=== PATIENT | male | born 1955 | race Two or more races ===

== ENCOUNTER 2025-09-10 01:00 | Inpatient (IN) | payer MEDICARE, OTHER ==
[~2025-09-10] VITALS: Ht 175.3 cm; Wt 67.1 kg
--- NOTE | 2025-09-10 01:25 | ED.PDOC ---
History of Present Illness HPI Comments 69-year-old male who came to ER via EMS for generalized weakness. Per EMS, patient being [facility] where patient was being seen there earlier, after he was seen laying on the bathroom floor of his house for over 3 days. Patient apparently was yelling for help until his neighbor came to his house. Diagnostic tests shows elevated BUN and creatinine results. Patient being transferred for JULIETTE and failure to thrive. Chief Complaint: General Weakness Time Seen by MD: : Reviewed Notes: Nurses Notes Allergies: Coded Allergies: NO KNOWN ALLERGIES (Unverified , 09/10/25) Information Source: Patient, Emergency Med Personnel Mode of Arrival: EMS Severity: Moderate Timing: Days Duration: Since onset Past Medical History PAST MEDICAL HISTORY: Cancer Surgical History: Denies all surgeries Family History Family History: Reviewed,noncontributory to illness Social History Smoker: Non-Smoker Alcohol: Denies ETOH Use Drugs: Denies Drug Use Lives In: Home Constitutional: reports: fatigue, weakness; denies: chills, diaphoresis, fever, malaise, sweats, others EENTM: denies: blurred vision, double vision, ear bleeding, ear discharge, ear drainage, ear pain, ear ringing, eye pain, eye redness, hearing loss, mouth pain, mouth swelling, nasal discharge, nose bleeding, nose congestion, nose pain, photophobia, tearing, throat pain, throat swelling, voice changes, others Respiratory: denies: cough, hemoptysis, orthopnea, SOB at rest, shortness of breath, SOB with excertion, stridor, wheezing, others Cardiovascular: denies: chest pain, dizzy spells, diaphoresis, Dyspnea on exertion, edema, irregular heart beat, left arm pain, lightheadedness, palpitations, PND, syncope, others Gastrointestinal: denies: abdomen distended, abdominal pain, blood streaked bowels, constipated, diarrhea, dysphagia, difficulty swallowing, hematemesis, melena, nausea, poor appetite, poor fluid intake, rectal bleeding, rectal pain, vomiting, others Genitourinary: denies: burning, dysuria, flank pain, frequency, hematuria, incontinence, penile discharge, penile sore, pain, testicle pain, testicle swelling, urgency, others Neurological: denies: dizziness, fainting, headache, left sided numbness, left sided weakness, numbness, paresthesia, pre-existing deficit, right sided numbness, right sided weakness, seizure, speech problems, tingling, tremors, weakness, others Musculoskeletal: denies: back pain, gout, joint pain, joint swelling, muscle pain, muscle stiffness, neck pain, others Integumetry: denies: bruises, change in color, change in hair/nails, dryness, laceration, lesions, lumps, rash, wounds, others Allergic/Immunocompromised: denies: Difficulty Healing, Frequent Infections, Hives, Itching, others Hematologic/Lymphatic: denies: anemia, blood clots, easy bleeding, easy bruising, swollen glands, others Endocrine: denies: excessive hunger, excessive sweating, excessive thirst, excessive urination, flushing, intolerance to cold, intolerance to heat, unexplained weight gain, unexplained weight loss, others Psychiatric: denies: anxiety, bipolar disorder, depression, hopeless, panic disorder, schizophrenia, sleepless, suicidal, others Physical Exam General Appearance: No Apparent Distress, Normal HEENT: Normal ENT Inspection, Pharynx Normal, TMs Normal Neck: Full Range of Motion, Non-Tender, Normal, Normal Inspection Respiratory: Chest Non-Tender, Lungs Clear, No Accessory Muscle Use, No Respiratory Distress, Normal Breath Sounds Cardiovascular: No Edema, No JVD, No Murmur, No Gallop, Normal Peripheral Pulse s, Regular Rate/Rhythm Breast Exam: Deferred Gastrointestinal: No Organomegaly, Non Tender, No Pulsatile Mass, Normal Bowel Sounds, Soft Genitalia: Deferred Pelvic: Deferred Rectal: Deferred Extremities: No calf tenderness, Normal capillary refill, Normal inspection, Normal range of motion, Non-tender, No pedal edema Musculoskeletal : Apperance: Normal Neurologic: Alert, weigher operator II-XII nml as Tested, No Motor Deficits, Normal Affect, Normal Mood, No Sensory Deficits Cerebellar Function: Normal Reflexes: Normal Skin: Dry, Normal Color, Warm Lymphatic: No Adenopathy Was a procedure done? Was a procedure done?: No Differential Dx Considerations may include: Anemia, electrolyte imbalance, dehydration, kidney failure, failure to thrive X-Ray, Labs, Meds, VS Vital Signs Date Time Temp Pulse Resp B/P (MAP) Pulse Ox O2 Delivery O2 Flow Rate FiO2 09/10/25 01:00 98.3 81 16 107/67 96 98.3 Lab Test 10/17/25 01:26 Range/Units White Blood Count 5.3 4.4-10.8 10^3/uL Red Blood Count 3.94 L 4.5-5.90 10^6/uL Hemoglobin 11.1 L 13.5-17.5 g/dL Hematocrit 33.5 L 41.0-53.0 % Mean Corpuscular Volume 85.0 80.0-100.0 fL Mean Corpuscular Hemoglobin 28.1 28.0-32.0 pg Mean Corpuscular Hemoglobin Concent 33.0 32.0-36.0 g/dL Red Cell Distribution Width 19.8 H 11.8-14.3 % Platelet Count 153 140-450 10^3/uL Mean Platelet Volume 8.5 6.9-10.8 fL Neutrophils (%) (Auto) 62.8 37.0-80.0 % Lymphocytes (%) (Auto) 34.1 10.0-50.0 % Monocytes (%) (Auto) 2.9 0.0-12.0 % Eosinophils (%) (Auto) 0.1 0.0-7.0 % Basophils (%) (Auto) 0.1 0.0-2.0 % Neutrophils # (Auto) 3.3 1.6-8.6 10 ^3/uL Lymphocytes # (Auto) 1.8 0.4-5.4 10 ^3/uL Monocytes # (Auto) 0.2 0-1.3 10 ^3/uL Eosinophils # (Auto) 0 0-0.8 10 ^3/uL Basophils # (Auto) 0 0-0.2 10 ^3/uL Nucleated Red Blood Cells 0.1 % Prothrombin Time 13.0 H 9.3-11.8 sec Prothrombin Time INR 1.25 H 0.9-1.15 Activated Partial Thromboplast Time 33.6 24.5-34.5 SEC Sodium Level 136 136-145 mmol/L Potassium Level 4.6 3.5-5.1 mmol/L Chloride Level 102 98-107 mmol/L Carbon Dioxide Level 22 20-31 mmol/L Anion Gap 12 5-15 Blood Urea Nitrogen 121 *H 9-23 mg/dL Creatinine 2.87 H 0.700-1.30 mg/dL Glomerular Filtration Rate Calc 23 >90 mL/min BUN/Creatinine Ratio 42.2 H 10.0-20.0 Serum Glucose 95 74-106 mg/dL Calcium Level 10.7 H 8.7-10.4 mg/dL Total Bilirubin 0.6 0.2-1.0 mg/dL Aspartate Amino Transferase (AST) 52 H 13-40 U/L Alanine Aminotransferase (ALT) 12 7-40 U/L Alkaline Phosphatase 88 46-116 U/L Total Protein 8.4 H 5.7-8.2 g/dL Albumin 3.4 3.2-4.8 g/dL Current Medications Medications (Trade) Dose Ordered Sig/Steven Route Start Time Stop Time Status Last Admin Sodium Chloride 1,000 ml @ 1,000 mls/hr Q1H ONCE IVB 09/10/25 01:15 09/10/25 02:14 DC 09/10/25 02:24 Time of 1ST Reevaluation: 01:18 Reevaluation 1ST: Unchanged Patient Education/Counseling: Diagnosis, Treatment Family Education/Counseling: No Family Present SEPSIS Sepsis Screen Physician Orders Urinalysis (09/10/25 01:12) Electrocardigram (09/10/25 01:12) Chest Xray 1 View (09/10/25 01:12) Vital Signs Date Time Temp Pulse Resp B/P (MAP) Pulse Ox O2 Delivery O2 Flow Rate FiO2 09/10/25 01:00 98.3 81 16 107/67 96 98.3 Laboratory Tests Test 09/10/25 01:26 White Blood Count 5.3 10^3/uL (4.4-10.8) Medications Medications Dose Ordered Sig/Steven Route Start Time Stop Time Status Last Admin Dose Admin Sodium Chloride 1,000 ml @ 1,000 mls/hr Q1H ONCE IVB 09/10/25 01:15 09/10/25 02:14 DC 09/10/25 02:24 Departure 1 Departure Time of Disposition: 02:30 Impression: Primary Impression: Acute renal failure Additional Impression: Dehydration Disposition: 09 ADMITTED INPATIENT Admit to: Med Surg Condition: Guarded Discharged With: Self Comments 69-year-old male with generalized weakness. His BUN and creatinine are high at 121 and 2.87. This is a dehydrated type of picture. Patient given IV fluids. Patient will need admission for supportive care and nephrology consultation. Critical Care Note Critical Care Time?: Yes (35 min-critical care time only) Critical care comment: Total critical care time: Approximately 36 minutes Due to a high probability of clinically significant, life threatening deterioration, the patient required my highest level of preparedness to intervene emergently and I personally spent this critical care time directly and personally managing the patient. This critical care time included obtaining a history; examining the patient; pulse oximetry; ordering and review of studies; arranging urgent treatment with development of a management plan; evaluation of patient's response to treatment; frequent reassessment; and, discussions with other providers. This critical care time was performed to assess and manage the high probability of imminent, life-threatening deterioration that could result in multi-organ failure. It was exclusive of separately billable procedures and treating other patients. Stability Stability form required: No Heart Score Heart Score: Heart Score Response (Comments) Value History N/A 0 EKG N/A 0 Age N/A 0 Risk Factors N/A 0 Troponin N/A 0 Total 0 I personally scribed for WILBER TURNER MD ([email or web address]) on 09/10/25 at 01:25. Electronically submitted by Feliciano Meza ([facility] I personally scribed for WILBER TURNER MD ([email or web address]) on 09/10/25 at 02:04. Electronically submitted by Feliciano Meza ([email or web address]). WILBER TURNER MD Sep 10, 2025 01:25
[2025-09-10 01:46] LABS: Hematocrit 33.5 % (41.0-53.0); Hemoglobin 11.1 g/dL (13.5-17.5); Mean Corpuscular Hemoglobin 28.1 pg (28.0-32.0); Mean Corpuscular Volume 85.0 fL (80.0-100.0); Nucleated Red Blood Cells % 0.1 %
--- NOTE | 2025-09-10 01:53 | DVH ---
CHEST RADIOGRAPH Indication: SOB Technique: Single frontal view of the chest was obtained COMPARISON: CHEST 1V PORT on DOS: 09/09/25 FINDINGS: Lungs and pleural spaces are clear. Cardiac silhouette and farhan are within normal limits. Bones and s oft tissues demonstrate no significant abnormality. IMPRESSION: No acute disease.
[2025-09-10 01:57] LABS: INR 1.25 (0.9-1.15); Partial Thromboplastin Time 33.6 SEC (24.5-34.5); Prothrombin Time 13.0 sec (9.3-11.8)
[2025-09-10 01:59] LABS: Alanine Aminotransferase 12 U/L (7-40); Albumin 3.4 g/dL (3.2-4.8); Alkaline Phosphatase 88 U/L (46-116); Anion Gap 12 (5-15); BUN/Creatinine Ratio 42.2 (10.0-20.0); Bilirubin, Total 0.6 mg/dL (0.2-1.0); Carbon Dioxide 22 mmol/L (20-31); Chloride 102 mmol/L (98-107); Glucose 95 mg/dL (74-106); Potassium 4.6 mmol/L (3.5-5.1); Sodium 136 mmol/L (136-145)
[2025-09-10] MEDS: SODIUM CHLORIDE 0.9% 1,000 ML IVB ONE (02:24)
[2025-09-10 02:28] LABS: Blood Urea Nitrogen 121 mg/dL (9-23); Calcium 10.7 mg/dL (8.7-10.4); Total Protein 8.4 g/dL (5.7-8.2)
[2025-09-10 04:04] VITALS: PULSE 86; RESP 16; O2SAT 98
[2025-09-10 08:35] VITALS: PULSE 109; RESP 16; O2SAT 97
[2025-09-10] MEDS ORDERED: ACETAMINOPHEN 325 MG TAB PO PRN (10:30)
[2025-09-10] MEDS ORDERED: ONDANSETRON HCL 4 MG/2 ML VIAL IV PRN (10:30)
[2025-09-10] MEDS ORDERED: DOCUSATE SOD 100 MG CAP PO PRN (10:30)
[2025-09-10] MEDS ORDERED: HYDROcodone-ACET 5/325MG TAB PO PRN (10:30)
--- NOTE | 2025-09-10 11:07 | DVHHP2 ---
History of Present Illness Reason for Visit: Generalized weakness History of Present Illness Forrest Mahmood is a 69-year-old male with past medical history of skin cancer, who was brought to the hospital by EMS after falling at home and being unable to get up. Patient lives in [facility], and was transferred from their hospital to here for further care. Patient is a poor historian. He states he lives alone and that he fell in his bathroom and was unable to get up. He is unsure how long he was on the floor. He states his phone was so he couldn't call for help. He had to wait until one of his neighbors heard him yelling and then came into his house to help him. States he does not have any significant medical history, but that he also does not go to the doctor. Patient had a CT of his head completed at [facility] that had no acute findings. He also had a CT of his abdomen without contrast that showed multiple masses. Recommends follow up imaging with contrast, will wait for kidney function to improve. Heme/Onc: Cancer (skin) Past Surgical History: Other (skin cancer removal) Smoke: No ALCOHOL: none Drugs: None Lives: Alone Domestic Violence: Neg Review of Systems Constitutional: Yes: Weakness, Malaise; No: Fever, Chills, Sweats, Other Eyes: No: Pain, Vision change, Conjunctivae inflammation, Eyelid inflammation, Other, Redness ENT: No: Ear pain, Ear discharge, Nose pain, Nose discharge, Nose congestion, Mouth pain, Mouth swelling, Throat pain, Throat swelling, Other Respiratory: No: Cough, Dry, Shortness of breath, SOB with excertion, Wheezing, Hemoptysis, Pleuritic Pain, Sputum, Wheezing, Other Cardiovascular: No: Chest Pain, Palpitations, Orthopnea, Paroxysmal Noc. Dyspnea, Edema, Lt Headedness, Other Gastrointestinal: No: Nausea, Vomiting, Abdominal Pain, Diarrhea, Constipation, Melena, Hematochezia, Other Genitourinary: No Dysuria, No Frequency, No Incontinence, No Hematuria, No Retention, No Other Musculoskeletal: No: other, neck pain, shoulder pain, arm pain, back pain, hand pain, leg pain, foot pain Skin: No: Rash, Lesions, Jaundice, Bruising, Other Neurological: Confusion; No: Weakness, Numbness, Incoordination, Change in speech, Seizures, Other Allergies: Coded Allergies: NO KNOWN ALLERGIES (Unverified , 09/10/25) Exam Vital Signs Vital Signs Date Time Temp Pulse Resp B/P (MAP) Pulse Ox O2 Delivery O2 Flow Rate FiO2 09/10/25 08:35 109 16 97 Room Air* 0 21 21 09/10/25 07:30 97.3 121/79 (93) 97.3 General Appearance: Alert, Oriented X3, Other (Patient is A&O x 3, but unsure on recent events or how long he was on the bathroom floor) HEENT: Atraumatic, PERRLA, Other (Mucous membr dry, Large buldge/cyst to right side of head) Respiratory: Clear to auscultation, Normal air movement Cardiovascular: Normal S1, Normal S2, Other (SR-ST) Extremities: No clubbing, No cyanosis, No edema, Normal pulses Skin: No rashes, No breakdown, No significant lesion Neuro: Normal speech Psych/Mental Status: Other (forgetful) Labs/Xrays Labs Test 09/10/25 01:26 Range/Units White Blood Count 5.3 4.4-10.8 10^3/uL Red Blood Count 3.94 L 4.5-5.90 10^6/uL Hemoglobin 11.1 L 13.5-17.5 g/dL Hematocrit 33.5 L 41.0-53.0 % Mean Corpuscular Volume 85.0 80.0-100.0 fL Mean Corpuscular Hemoglobin 28.1 28.0-32.0 pg Mean Corpuscular Hemoglobin Concent 33.0 32.0-36.0 g/dL Red Cell Distribution Width 19.8 H 11.8-14.3 % Platelet Count 153 140-450 10^3/uL Mean Platelet Volume 8.5 6.9-10.8 fL Neutrophils (%) (Auto) 62.8 37.0-80.0 % Lymphocytes (%) (Auto) 34.1 10.0-50.0 % Monocytes (%) (Auto) 2.9 0.0-12.0 % Eosinophils (%) (Auto) 0.1 0.0-7.0 % Basophils (%) (Auto) 0.1 0.0-2.0 % Neutrophils # (Auto) 3.3 1.6-8.6 10 ^3/uL Lymphocytes # (Auto) 1.8 0.4-5.4 10 ^3/uL Monocytes # (Auto) 0.2 0-1.3 10 ^3/uL Eosinophils # (Auto) 0 0-0.8 10 ^3/uL Basophils # (Auto) 0 0-0.2 10 ^3/uL Nucleated Red Blood Cells 0.1 % Prothrombin Time 13.0 H 9.3-11.8 sec Prothrombin Time INR 1.25 H 0.9-1.15 Activated Partial Thromboplast Time 33.6 24.5-34.5 SEC Sodium Level 136 136-145 mmol/L Potassium Level 4.6 3.5-5.1 mmol/L Chloride Level 102 98-107 mmol/L Carbon Dioxide Level 22 20-31 mmol/L Anion Gap 12 5-15 Blood Urea Nitrogen 121 *H 9-23 mg/dL Creatinine 2.87 H 0.700-1.30 mg/dL Glomerular Filtration Rate Calc 23 >90 mL/min BUN/Creatinine Ratio 42.2 H 10.0-20.0 Serum Glucose 95 74-106 mg/dL Calcium Level 10.7 H 8.7-10.4 mg/dL Total Bilirubin 0.6 0.2-1.0 mg/dL Aspartate Amino Transferase (AST) 52 H 13-40 U/L Alanine Aminotransferase (ALT) 12 7-40 U/L Alkaline Phosphatase 88 46-116 U/L Creatine Kinase 244 H 46-171 U/L Total Protein 8.4 H 5.7-8.2 g/dL Albumin 3.4 3.2-4.8 g/dL CHEST RADIOGRAPH FINDINGS: Lungs and pleural spaces are clear. Cardiac silhouette and farhan are within normal limits. Bones and soft tissues demonstrate no significant abnormality. IMPRESSION: No acute disease. SEPSIS Sepsis Screen Date sepsis recognized/suspect: Sep 10, 2025 Time Sepsis recognized/suspect: 0845 Recent Procedure: No On Antibiotic Therapy: No Respiratory Rate >20: No Heart Rate >90: Yes Temp<36 C (96.8 F) or >38.3 C: No SBP <90 or MAP <65 mmHG: No New Acute Mental Status Change: No Is the patient on CPAP, BIPAP,: No Physician Orders Admit (09/10/25 10:23) Code Status (09/10/25 10:23) 2 Gm Sodium Diet (09/10/25 Lunch) 0.9% Ns 1000 Ml (09/10/25 10:30) Hydrocodone-Acet 5/325mg Tab ([place] 5/32 (09/10/25 10:30) Ondansetron Hcl (Zofran) (09/10/25 10:30) Docusate Sodium Capsule (Colace Capsule) (09/10/25 10:30) Enoxaparin Sodium (Lovenox) (09/11/25 10:00) Fall Risk Precautions In Place QSHIFT (09/10/25 10:23) Complete Blood Count (09/11/25 04:00) Comprehensive Metabolic Panel (09/11/25 04:00) Pt Request For Service (09/10/25 10:23) Condition: Serious (09/10/25 10:23) Acetaminophen Tablet (Tylenol Tablet) (09/10/25 10:30) NS (09/10/25 10:30) Vital Signs Date Time Temp Pulse Resp B/P (MAP) Pulse Ox O2 Delivery O2 Flow Rate FiO2 09/10/25 08:35 109 16 97 Room Air* 0 21 21 09/10/25 07:30 97.3 109 20 121/79 (93) 97 97.3 09/10/25 06:30 93 12 110/79 (89) 96 09/10/25 04:30 86 12 116/72 (87) 98 09/10/25 04:04 86 16 98 Room Air* 0 21 21 Laboratory Tests Test 09/10/25 01:26 White Blood Count 5.3 10^3/uL (4.4-10.8) Medications Medications Dose Ordered Sig/Steven Route Start Time Stop Time Status Last Admin Dose Admin Sodium Chloride 1,000 ml @ 1,000 mls/hr Q1H ONCE IVB 09/10/25 01:15 09/10/25 02:14 DC 09/10/25 02:24 1,000 MLS/HR Assessment/Plan Assessment/Plan Assessment: Rhabdomyolysis, Acute kidney injury, Failure to thrive, UTI, Plan: Admit to Med-Surg, IV hydration, IV antibiotics, Consider nephrology consult, Fall risk, Physical therapy evaluation, Consider social service consult, Plan discussed with: Patient My Orders Orders - LUCINDA GARNER Procedure Category Date Status Time Admit ADMIT 09/10/25 Verified 10:23 Code Status CODE 09/10/25 Verified 10:23 2 Gm Sodium Diet DIET 09/10/25 Verified Lunch 0.9% Ns 1000 Ml PHA 09/10/25 Verified 10:30 Hydrocodone-Acet PHA 09/10/25 Verified 5/325mg Tab ([place] 10:30 Ondansetron Hcl PHA 09/10/25 Verified (Zofran) 10:30 Docusate Sodium PHA 09/10/25 Verified Capsule (Colace 10:30 Enoxaparin Sodium PHA 09/11/25 Verified (Lovenox) 10:00 Fall Risk Precautions BRE 09/10/[address] 10:23 Complete Blood Count LAB 09/11/25 Verified 04:00 Comprehensive LAB 09/11/25 Verified Metabolic Panel 04:00 Pt Request For Service PT 09/10/25 Verified 10:23 Condition: Serious BRE 09/10/25 Verified 10:23 Acetaminophen Tablet PHA 09/10/25 Verified (Tylenol Tablet) 10:30 NS PHA 09/10/25 Verified 10:30 Date of Service: Sep 10, 2025 Billing Provider: LUCINDA GARNER Common Visit Codes: [id number] INP/OBS CARE (MOD) LUCINDA GARNER Sep 10, 2025 11:07
[2025-09-10] MEDS: SODIUM CHLORIDE 0.9% 2,000 ML IV ONE (11:22)
[2025-09-10 13:52] LABS: Urine Protein, UAD 1+ (Negative); Urine WBC Clumps PRESENT /hpf (None Seen)
[2025-09-10] MEDS: SODIUM CHLORIDE 0.9% 1,000 ML IV SCH (14:21)
[2025-09-10 18:14] VITALS: PULSE 80; RESP 18; O2SAT 95
[2025-09-10 21:00] VITALS: BP 148/97; PULSE 106; RESP 20; TEMP 98; O2SAT 97
[2025-09-11 01:00] VITALS: BP 123/90; PULSE 99; RESP 20; TEMP 98.7; O2SAT 97
[2025-09-11 05:00] VITALS: BP 125/89; PULSE 89; RESP 19; TEMP 98.1; O2SAT 97
[2025-09-11 05:17] LABS: Hematocrit 29.7 % (41.0-53.0); Hemoglobin 9.9 g/dL (13.5-17.5); Mean Corpuscular Hemoglobin 28.4 pg (28.0-32.0); Mean Corpuscular Volume 85.0 fL (80.0-100.0); Nucleated Red Blood Cells % 0.1 %
[2025-09-11 05:37] LABS: Alkaline Phosphatase 78 U/L (46-116); Anion Gap 14 (5-15); BUN/Creatinine Ratio 33.6 (10.0-20.0); Bilirubin, Total 0.5 mg/dL (0.2-1.0); Calcium 9.5 mg/dL (8.7-10.4); Glucose 77 mg/dL (74-106); Potassium 4.2 mmol/L (3.5-5.1); Sodium 141 mmol/L (136-145); Total Protein 7.5 g/dL (5.7-8.2)
[2025-09-11 05:47] LABS: Alanine Aminotransferase < 9 U/L (7-40); Albumin 3.0 g/dL (3.2-4.8); Carbon Dioxide 19 mmol/L (20-31); Chloride 108 mmol/L (98-107)
[2025-09-11 05:48] LABS: Blood Urea Nitrogen 92 mg/dL (9-23)
[2025-09-11] MEDS: HALOPERIDOL LACTATE 5 MG/ML INJ VIAL IM PRN (07:19)
[2025-09-11 09:00] VITALS: BP 112/75; PULSE 92; RESP 17; TEMP 99.3; O2SAT 98
[2025-09-11] MEDS: ENOXAPARIN SOD 30 MG/0.3 ML SYRINGE SC SCH (10:00)
[2025-09-11 17:00] VITALS: BP 127/82; PULSE 108; RESP 17; TEMP 97.8; O2SAT 95
--- NOTE | 2025-09-11 17:46 | DVHPN2 ---
Subjective looks rested now/denies any pain Changes from previous H/P or p: No Changes Eyes: No Pain, No Vision change, No Conjunctivae inflammation, No Eyelid inflammation, No Other, No Redness ENT: No Ear pain, No Ear discharge, No Nose pain, No Nose discharge, No Nose congestion, No Mouth pain, No Mouth swelling, No Throat pain, No Throat swelling, No Other Cardiovascular: No Chest Pain, No Palpitations, No Orthopnea, No Paroxysmal Noc. Dyspnea, No Edema, No Lt Headedness, No Other Respiratory: No Cough, No Dry, No Shortness of breath, No SOB with excertion, No Wheezing, No Hemoptysis, No Pleuritic Pain, No Sputum, No Other Gastrointestinal: No Nausea, No Vomiting, No Abdominal Pain, No Diarrhea, No Constipation, No Melena, No Hematochezia, No Other Genitourinary: No Dysuria, No Frequency, No Incontinence, No Hematuria, No Retention, No Other Musculoskeletal: No other, No neck pain, No shoulder pain, No arm pain, No back pain, No hand pain, No leg pain, No foot pain Skin: No Rash, No Lesions, No Jaundice, No Bruising, No Other Objective Vitals Vital Signs Date Time Temp Pulse Resp B/P (MAP) Pulse Ox O2 Delivery O2 Flow Rate FiO2 09/11/25 17:00 97.8 108 17 127/82 (97) 95 97.8 09/11/25 08:00 Room Air* 0 21 Intake/Output Intake and Output 09/11/25 07:00 Intake Total 2790 ml Output Total 700 ml Balance 2090 ml Intake Oral 565 ml IV Total 2225 ml Output Urine Total 700 ml General Appearance: Alert, Oriented X3, Cooperative, No acute distress Lungs: Clear to auscultation Cardiovascular: Regular rate, Normal S1, Normal S2 Abdomen: Normal bowel sounds, Soft, Other (hard mass left side of abdomen 10 cm) Musculoskeletal: Normal sensory function, Normal motor function Extremities: No edema Neuro: Normal gait, Normal speech, Strength at 5/5 X4 ext, Normal tone, S ensation intact, Cranial nerves 3-12 NL, Other (not confused now- but per nurse intermittent confusion) Psych/Mental Status: Mental status NL, Mood NL Medications Current Medications Medications Dose Ordered Sig/Steven Route Start Time Stop Time Status Last Admin Dose Admin Sodium Chloride 1,000 ml @ 75 mls/hr [id number] IV 09/10/25 10:30 09/10/25 14:21 75 MLS/HR Acetaminophen/ Hydrocodone Bitart 1 tab Q4HP PRN PO 09/10/25 10:30 Ondansetron HCl 4 mg Q4HP PRN IV 09/10/25 10:30 Docusate Sodium 100 mg BIDPRN PRN PO 09/10/25 10:30 Enoxaparin Sodium 30 mg DAILY SC 09/11/25 10:00 Acetaminophen 650 mg Q6HP PRN PO 09/10/25 10:30 Haloperidol Lactate 5 mg Q8HP PRN IM 09/11/25 07:00 09/11/25 07:19 5 MG Ceftriaxone Sodium 50 ml @ 100 mls/hr DAILY@09 IV 09/11/25 09:00 Laboratory Results Laboratory Tests 09/11/25 04:39 Chemistry Test 09/11/25 04:39 Albumin 3.0 g/dL (3.2-4.8) L Calcium Level 9.5 mg/dL (8.7-10.4) Total Protein 7.5 g/dL (5.7-8.2) LFT Test 09/11/25 04:39 Alanine Aminotransferase (ALT) < 9 U/L (7-40) Alkaline Phosphatase 78 U/L (46-116) Aspartate Amino Transferase (AST) 45 U/L (13-40) H Total Bilirubin 0.5 mg/dL (0.2-1.0) Urinalysis Test 09/10/25 13:22 Urine Color Light-orange (Yellow) Urine Clarity Ex.turbid (Clear) Urine pH 5.0 (5.0-9.0) Urine Specific [place] 1.018 (1.001-1.035) Urine Protein 1+ (Negative) H Urine Ketones Negative (Negative) Urine Blood 2+ /uL (Negative) H Urine Nitrite Negative (Negative) Urine Bilirubin Negative (Negative) Urine Urobilinogen Normal mg/dL (Negative) Urine Leukocyte Esterase 3+ /uL (Negative) Urine RBC 70 /hpf (0 - 3) Urine WBC Clumps Present /hpf (None Seen) Urine Microscopic WBC 196 /HPF (0-3) H Urine Squamous Epithelial Cells Few /hpf (<5) Urine Calcium Oxalate Crystals Few (None Seen) Urine Bacteria Few /hpf (None Seen) H Urine Hyaline Casts Mod /lpf (0 - 2) Urine Mucus Few (None Seen) Urine Glucose Normal mg/dL (Normal) Microbiology Microbiology Date/Time Source Procedure Growth Status 09/10/25 20:35 Nose MRSA Screen - Final Complete Assessment/Plan Assessment/Plan aloc- intermittent/evluate- normal ct head/await urine cultures/empiric ab/consult neuro abdominal mass- ? neoplasm./ get ct from [place] s/p fall with mild elevation in cpk- not clinically significant to say rhabdomyolysis ckd4- us kidneys/nephro consult/ Plan discussed with: Patient, Other Date of Service: Sep 11, 2025 Billing Provider: CHRISTOPHER PINON MD Common Visit Codes: [id number] INP/OBS CARE(MOD) CHRISTOPHER PINON MD Sep 11, 2025 17:46
--- NOTE | 2025-09-11 19:06 | DVH ---
INDICATION: acute kidney injury TECHNIQUE: Multiple real-time sonographic images of the kidneys and bladder were obtained. COMPARISON: None FINDINGS: RIGHT kidney measures 10.6 cm in length. No stones are hydronephrosis. Echogenicity is normal. Left kidney not visualized. Large mass adjacent to the spleen measuring up to 22 cm, uncertain if thi s represents the kidney. No large intraluminal masses are seen in the bladder. No significant postvoid residual. Trace fluid seen in the right upper quadrant right lower quadrant. IMPRESSION: Left kidney not visualized, instead replaced by a large mass adjacent to the spleen, possibly invadin g the kidney. No right-sided hydronephrosis.
[2025-09-11 21:00] VITALS: BP 131/79; PULSE 92; RESP 17; TEMP 97.1; O2SAT 96
[2025-09-12] VITALS (7 sets, daily range): BP systolic 111–124; BP diastolic 72–82; PULSE 91–110; RESP 16–18; TEMP 97–97.7; O2SAT 95–98
--- NOTE | 2025-09-12 15:07 | DVHINCON2 ---
Date of service: Sep 12, 2025 Referring Physician Yesy Murdock NP Reason for Consultation Acute kidney injury History of Present Illness Mr. Mahmood is a 69-year-old male with prior history of skin cancer presented for further evaluation and management of acute kidney injury and generalized wea kness. He was seen initially in the ER at [facility] and was transferred to [facility] for further care. He is seen in his room, patient's sitter is at the bedside. Patient is markedly cachectic. Per chart documentation he was helped by neighbors after he had fallen at home. Serum BUN and creatinine are elevated and have improved with IV hydration. Past Medical History Skin cancer Allergies: Coded Allergies: NO KNOWN ALLERGIES (Unverified , 09/10/25) Review of Systems Unable to be obtained due to slight confusion / diminished mentation H&P Exam Vital Signs/I&O Vital Sign Date Time Temp Pulse Resp B/P (MAP) Pulse Ox O2 Delivery O2 Flow Rate FiO2 09/12/25 13:14 110 18 111/72 (85) 95 09/12/25 09:00 97.7 97.7 09/12/25 07:30 Room Air* 0 21 Intake and Output 09/11/25 09/12/25 19:00 07:00 Intake Total 240 ml 930 ml Output Total 1000 ml Balance 240 ml -70 ml Intake Oral 240 ml 930 ml Output Urine Total 1000 ml # Bowel Movements 3 Physical Exam Gen: nad, chronically ill-appearing, cachectic heent: nc/at, mmm lungs: cta anteriorly cvs: no rub abd: soft, bowel sounds audible ext: no edema skin: no rash neuro: Slow to respond Labs/Diagnostic Data Labs/Diagnostic Data Laboratory Tests Test 09/11/25 04:39 09/10/25 13:22 09/10/25 01:26 Range/Units White Blood Count 3.7 #L 5.3 4.4-10.8 10^3/uL Red Blood Count 3.49 L 3.94 L 4.5-5.90 10^6/uL Hemoglobin 9.9 L 11.1 L 13.5-17.5 g/dL Hematocrit 29.7 #L 33.5 L 41.0-53.0 % Mean Corpuscular Volume 85.0 85.0 80.0-100.0 fL Mean Corpuscular Hemoglobin 28.4 28.1 28.0-32.0 pg Mean Corpuscular Hemoglobin Concent 33.4 33.0 32.0-36.0 g/dL Red Cell Distribution Width 19.4 H 19.8 H 11.8-14.3 % Platelet Count 110 L 153 140-450 10^3/uL Mean Platelet Volume 8.1 8.5 6.9-10.8 fL Neutrophils (%) (Auto) 64.7 62.8 37.0-80.0 % Lymphocytes (%) (Auto) 30.8 34.1 10.0-50.0 % Monocytes (%) (Auto) 4.1 2.9 0.0-12.0 % Eosinophils (%) (Auto) 0.2 0.1 0.0-7.0 % Basophils (%) (Auto) 0.2 0.1 0.0-2.0 % Neutrophils # (Auto) 2.4 3.3 1.6-8.6 10 ^3/uL Lymphocytes # (Auto) 1.1 1.8 0.4-5.4 10 ^3/uL Monocytes # (Auto) 0.2 0.2 0-1.3 10 ^3/uL Eosinophils # (Auto) 0 0 0-0.8 10 ^3/uL Basophils # (Auto) 0 0 0-0.2 10 ^3/uL Nucleated Red Blood Cells 0.1 0.1 % Sodium Level 141 # 136 136-145 mmol/L Potassium Level 4.2 4.6 3.5-5.1 mmol/L Chloride Level 108 H 102 98-107 mmol/L Carbon Dioxide Level 19 L 22 20-31 mmol/L Anion Gap 14 12 5-15 Blood Urea Nitrogen 92 #*H 121 *H 9-23 mg/dL Creatinine 2.74 H 2.87 H 0.700-1.30 mg/dL Glomerular Filtration Rate Calc 24 23 >90 mL/min BUN/Creatinine Ratio 33.6 H 42.2 H 10.0-20.0 Serum Glucose 77 95 74-106 mg/dL Calcium Level 9.5 10.7 H 8.7-10.4 mg/dL Total Bilirubin 0.5 0.6 0.2-1.0 mg/dL Aspartate Amino Transferase (AST) 45 H 52 H 13-40 U/L Alanine Aminotransferase (ALT) < 9 12 7-40 U/L Alkaline Phosphatase 78 88 46-116 U/L Creatine Kinase 101 244 H 46-171 U/L Total Protein 7.5 8.4 H 5.7-8.2 g/dL Albumin 3.0 L 3.4 3.2-4.8 g/dL Urine Color Light-orange Yellow Urine Clarity Ex.turbid Clear Urine pH 5.0 5.0-9.0 Urine Specific [place] 1.018 1.001-1.035 Urine Protein 1+ H Negative Urine Ketones Negative Negative Urine Blood 2+ H Negative /uL Urine Nitrite Negative Negative Urine Bilirubin Negative Negative Urine Urobilinogen Normal Negative mg/dL Urine Leukocyte Esterase 3+ Negative /uL Urine RBC 70 0 - 3 /hpf Urine WBC Clumps Present None Seen /hpf Urine Microscopic WBC 196 H 0-3 /HPF Urine Squamous Epithelial Cells Few <5 /hpf Urine Calcium Oxalate Crystals Few None Seen Urine Bacteria Few H None Seen /hpf Urine Hyaline Casts Mod 0 - 2 /lpf Urine Mucus Few None Seen Urine Glucose Normal Normal mg/dL Prothrombin Time 13.0 H 9.3-11.8 sec Prothrombin Time INR 1.25 H 0.9-1.15 Activated Partial Thromboplast Time 33.6 24.5-34.5 SEC Microbiology Date/Time Source Procedure Growth Status 09/10/25 20:35 Nose MRSA Screen - Final Complete Assessment IMP: 1) Hemodynamically mediated JULIETTE/VMN, prerenal state 2) CKD baseline creatinine unknown 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 Plan discussed with: Patient TYRONE HEARN MD Sep 12, 2025 15:07
--- NOTE | 2025-09-12 16:18 | DVHPN2 ---
Subjective looks rested now/denies any pain/per nursing 6 bm last night- smells like c.diff Changes from previous H/P or p: No Changes Eyes: No Pain, No Vision change, No Conjunctivae inflammation, No Eyelid inflammation, No Other, No Redness ENT: No Ear pain, No Ear discharge, No Nose pain, No Nose discharge, No Nose congestion, No Mouth pain, No Mouth swelling, No Throat pain, No Throat swelling, No Other Cardiovascular: No Chest Pain, No Palpitations, No Orthopnea, No Paroxysmal Noc. Dyspnea, No Edema, No Lt Headedness, No Other Respiratory: No Cough, No Dry, No Shortness of breath, No SOB with excertion, No Wheezing, No Hemoptysis, No Pleuritic Pain, No Sputum, No Other Gastrointestinal: No Nausea, No Vomiting, No Abdominal Pain, No Diarrhea, No Constipation, No Melena, No Hematochezia, No Other Genitourinary: No Dysuria, No Frequency, No Incontinence, No Hematuria, No Retention, No Other Musculoskeletal: No other, No neck pain, No shoulder pain, No arm pain, No back pain, No hand pain, No leg pain, No foot pain Skin: No Rash, No Lesions, No Jaundice, No Bruising, No Other Objective Vitals Vital Signs Date Time Temp Pulse Resp B/P (MAP) Pulse Ox O2 Delivery O2 Flow Rate FiO2 09/12/25 13:14 110 18 111/72 (85) 95 09/12/25 09:00 97.7 97.7 09/12/25 07:30 Room Air* 0 21 Intake/Output Intake and Output 09/12/25 07:00 Intake Total 1170 ml Output Total 1000 ml Balance 170 ml Intake Oral 1170 ml Output Urine Total 1000 ml # Bowel Movements 3 General Appearance: Alert, Oriented X3, Cooperative, No acute distress Lungs: Clear to auscultation Cardiovascular: Regular rate, Normal S1, Normal S2 Abdomen: Normal bowel sounds, Soft, Other (hard mass left side of abdomen 10 cm) Musculoskeletal: Normal sensory function, Normal motor function Extremities: No edema Neuro: Normal speech, Strength at 5/5 X4 ext, Normal tone, Sensation intact, C ranial nerves 3-12 NL, Other (not confused now- but per nurse intermittent confusion) Psych/Mental Status: Mental status NL (alert,awake.oriented -2), Mood NL Medications Current Medications Medications Dose Ordered Sig/Steven Route Start Time Stop Time Status Last Admin Dose Admin Sodium Chloride 1,000 ml @ 75 mls/hr [id number] IV 09/10/25 10:30 09/12/25 12:42 75 MLS/HR Acetaminophen/ Hydrocodone Bitart 1 tab Q4HP PRN PO 09/10/25 10:30 Ondansetron HCl 4 mg Q4HP PRN IV 09/10/25 10:30 Docusate Sodium 100 mg BIDPRN PRN PO 09/10/25 10:30 Enoxaparin Sodium 30 mg DAILY SC 09/11/25 10:00 09/12/25 10:51 30 MG Acetaminophen 650 mg Q6HP PRN PO 09/10/25 10:30 Haloperidol Lactate 5 mg Q8HP PRN IM 09/11/25 07:00 09/11/25 07:19 5 MG Ceftriaxone Sodium 50 ml @ 100 mls/hr DAILY@09 IV 09/11/25 09:00 09/12/25 10:51 100 MLS/HR Laboratory Results Laboratory Tests 09/11/25 04:39 Urinalysis Test 09/10/25 13:22 Urine Color Light-orange (Yellow) Urine Clarity Ex.turbid (Clear) Urine pH 5.0 (5.0-9.0) Urine Specific [place] 1.018 (1.001-1.035) Urine Protein 1+ (Negative) H Urine Ketones Negative (Negative) Urine Blood 2+ /uL (Negative) H Urine Nitrite Negative (Negative) Urine Bilirubin Negative (Negative) Urine Urobilinogen Normal mg/dL (Negative) Urine Leukocyte Esterase 3+ /uL (Negative) Urine RBC 70 /hpf (0 - 3) Urine WBC Clumps Present /hpf (None Seen) Urine Microscopic WBC 196 /HPF (0-3) H Urine Squamous Epithelial Cells Few /hpf (<5) Urine Calcium Oxalate Crystals Few (None Seen) Urine Bacteria Few /hpf (None Seen) H Urine Hyaline Casts Mod /lpf (0 - 2) Urine Mucus Few (None Seen) Urine Glucose Normal mg/dL (Normal) Microbiology Microbiology Date/Time Source Procedure Growth Status 09/10/25 20:35 Nose MRSA Screen - Final Complete Labs and/or images reviewed: Labs reviewed by me, Image(s) reviewed by me Assessment/Plan Assessment/Plan aloc- intermittent/evluate- normal ct head/await urine cultures/empiric ab/consult neuro abdominal mass- ? neoplasm./ get ct from [place]/us shows renal mass uro consulted s/p fall with mild elevation in cpk- not clinically significant to say rhabdomyolysis ckd4- us kidneys/nephro consult/ left elbow -old fracture sequelae clinically pt not able to remember/check xray diarrhea- evaluate/treat Plan discussed with: Patient, Other (no family members/contact numbers) My Orders Orders - CHRISTOPHER PINON MD Procedure Category Date Status Time *Dr. [facility] CONS 09/11/25 Transmitted -[place] 17:47 *Consult Dr. Chairez CONS 09/11/25 Transmitted [place] 17:47 Kidney US 09/11/25 Resulted 17:48 * Urology Consult CONS 09/12/25 Transmitted 14:25 * Hematology/Oncology CONS 09/12/25 Transmitted Consult 14:26 * Content Administrator CONS 09/12/25 Transmitted Consult 15:53 Metronidazole Tablet PHA 09/12/25 Transmitted (Flagyl Tablet) 22:00 Metronidazole Tablet PHA 09/12/25 Transmitted (Flagyl Tablet) 16:15 Date of Service: Sep 12, 2025 Billing Provider: CHRISTOPHER PINON MD Common Visit Codes: [id number] INP/OBS CARE(HIGH) CHRISTOPHER PINON MD Sep 12, 2025 16:18
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
[2025-09-12] MEDS: metroNIDAZOLE 500 MG TAB PO SCH (21:51)
[2025-09-12] MEDS ORDERED: LORazepam 2MG/ML-1ML VIAL IV PRN (22:00)
[2025-09-13] VITALS (7 sets, daily range): BP systolic 118–153; BP diastolic 68–89; PULSE 82–92; RESP 16–18; TEMP 97–98.1; O2SAT 92–99
[2025-09-13 00:32] LABS: Amphetamine Screen, Urine Neg (NEGATIVE); Barbiturate Scree,Urine Neg (NEGATIVE); Benzodiazephine Screen, Urine Neg (NEGATIVE); Cannabinoid Screen, Urine Neg (NEGATIVE); Cocaine Screen, Urine Neg (NEGATIVE); Opiate Scree,Urine Neg (NEGATIVE); Phencyclidine Screen, Urine Neg (NEGATIVE)
[2025-09-13 06:56] LABS: Hematocrit 30.0 % (41.0-53.0); Hemoglobin 10.0 g/dL (13.5-17.5); Mean Corpuscular Hemoglobin 28.7 pg (28.0-32.0); Mean Corpuscular Volume 85.7 fL (80.0-100.0); Nucleated Red Blood Cells % 0.1 %
[2025-09-13 07:10] LABS: Anion Gap 12 (5-15); Calcium 9.6 mg/dL (8.7-10.4); Potassium 3.8 mmol/L (3.5-5.1); Sodium 138 mmol/L (136-145)
[2025-09-13 07:16] LABS: Glucose 90 mg/dL (74-106)
[2025-09-13 07:17] LABS: BUN/Creatinine Ratio 31.7 (10.0-20.0)
[2025-09-13 07:18] LABS: Blood Urea Nitrogen 77 mg/dL (9-23); Carbon Dioxide 19 mmol/L (20-31); Chloride 107 mmol/L (98-107)
--- NOTE | 2025-09-13 09:03 | DVHPN2 ---
Progress Note - Dictate Date Seen: Sep 13, 2025 Medical Necessity Reason Pt with a Central, PICC or Fol: Yes The following are medically ne: Tineo Catheter Subjective Mr. Mahmood is a 69 years old gentleman with a history of cancer, the patient was transferred from the [facility]. The patient is awake, with good social skills I have seen and examined the patient, I have talked to his nurse and sitter, he is better today, awake, oriented to person, place, he remembers some ambulance experience He moves both arms and legs, [facility] PT/INR/APTT 09/09/2025:12.4/1.17/26.7 BUN/CR, 09/09/2025: 126/3.2 Lactic acid, 09/09/2025: 2.1 CPK, 09/09/25: 258 NH3, 09/09/2025: <9 TSH, 09/12/2025: 18.18 CT head, 09/09/2025: No acute intracranial abnormality. Large cystic appearance structure within the right posterior scalp, possibly a large sebaceous cyst CT abdomen/pelvis, 09/09/2025: Limited assessment and without contrast. Multiple large masses oriented times in the upper and mid abdomen. Arranging not clear without contrast. Left kidney not visualized, possible intubated by the mass Urinalysis, 09/10/2025: WBC: 196, urine leukocyte esterase: 3+ WBC/HB/PLT/MCV, 09/11/2025: 3.7/9.9/110/85 PT/INR/ABG, 09/10/2025: 13/1.25/33.6 BUN/CR, 09/10/2025: 121/2.87, 08/1025: 92/2.74, 09/13/2025: 77/2.43 HCO3 09/11/2025: 19, 09/13/2025: 19 GFR, 09/10/2025: 23, 09/18: 24 TBI/AST/ALT/AP, 09/10/2025: 0.6/52/12/88 CK, 09/10/2025: 244, 09/11/25: 103 Ultrasound, 09/11/2025: Left kidney not visualized, instead replaced by a large mass adjacent to the spleen, possibly invading the kidney. No right-sided hydronephrosis. Chest x-ray, 09/10/2025: No acute disease vital signs Vital Sign Date Time Temp Pulse Resp B/P (MAP) Pulse Ox O2 Delivery O2 Flow Rate FiO2 09/13/25 08:00 Room Air* 0 21 09/13/25 05:00 98.1 85 18 123/76 (92) 99 98.1 Total Intake and Output 09/12/25 09/12/25 09/13/25 15:00 23:00 07:00 Intake Total 2061 ml 1240 ml 3000 ml Output Total 378 ml 453 ml Balance 2061 ml 862 ml 2547 ml medications Current Medications Medications Dose Ordered Sig/Steven Route Start Time Stop Time Status Last Admin Dose Admin Sodium Chloride 1,000 ml @ 75 mls/hr [id number] IV 09/10/25 10:30 09/13/25 05:28 75 MLS/HR Acetaminophen/ Hydrocodone Bitart 1 tab Q4HP PRN PO 09/10/25 10:30 Ondansetron HCl 4 mg Q4HP PRN IV 09/10/25 10:30 Docusate Sodium 100 mg BIDPRN PRN PO 09/10/25 10:30 Enoxaparin Sodium 30 mg DAILY SC 09/11/25 10:00 09/13/25 08:53 30 MG Acetaminophen 650 mg Q6HP PRN PO 09/10/25 10:30 Haloperidol Lactate 5 mg Q8HP PRN IM 09/11/25 07:00 09/11/25 07:19 5 MG Ceftriaxone Sodium 50 ml @ 100 mls/hr DAILY@09 IV 09/11/25 09:00 09/13/25 08:53 100 MLS/HR Metronidazole 500 mg Q8HR PO 09/12/25 22:00 09/13/25 05:28 500 MG Lorazepam 1 mg ONCE PRN IV 09/12/25 22:00 objective General: the patient is well developed and nourished. No acute distress. He is cachexia MENTAL STATUS: Awake, only oriented to himself SPEECH, LANGUAGE, HIGHER CORTICAL FUNCTION: no aphasia or dysathria. CRANIAL NERVES:Pupils are equal, round and reactive. EOMs full and conjugate. No nystagmus. Facial sensation intact in all three divisions bilaterally. Mandibular strength intact. Facial muscles symmetrical and strength intact. Tongue midline. No fasciculations or atrophy. SENSATION: Sensation to touch and pinprick is normal. MOTOR: Normal tone in the upper and lower extremity. Normal muscle bulk. No fasciculations. No abnormal movements or posturing. Muscle strength of the major groups in the upper extremities is 4/5. For both legs, ? Left-sided weaker REFLEXES: Deep tendon reflexes normal and symmetrical. No pathological reflexes. CEREBELLAR/COORDINATION: Finger to nose is normal bilaterally GAIT/STATION: deferred. laboratory and microbiology Laboratory Tests 09/13/25 04:30 Test 09/13/25 04:30 Range/Units Serum Glucose 90 74-106 mg/dL Problem List Altered mental status Metabolic encephalopathy Rule out dementia Cachexia ? Secondary to abdominal mass Acute kidney failure Left leg weakness Hypothyroidism Assessment/Plan Monitoring Supportive treatment Med surge UDS Vitamin B12, folic acid, EEG CT abdomen/pelvis MRI brain scan Nephrology consultation Urology consultation Hematology consultation More recommendation per clinical course This medical document was created using an electronic medical record system with [employer] dictation system. Although this document has been carefully reviewed, there may still be some phonetic and typographical errors. These areas are purely typographical due to imperfections of the software programs, and do not reflect any compromise in the patient's medical care. Prognosis poor Dietary Evaluation Review Recommendations by RD: Increase Calorie Intake Comments: 1) Initiate Nepro bid 2) Consider adding renal standard restriction to diet 3) Encourage optimal PO intake 4) Follow-up with oncology and nephrology 5) Continue to monitor I&O, labs, and skin integrity Expected Outcomes/Goals: 1) appetite and labs to improve 2) gradual wt gain 3) f/u in 3-5 days Plan discussed with: Other Total Time (mins): 40 SHANTAL WINTER MD Sep 13, 2025 09:03
--- NOTE | 2025-09-13 09:34 | DVH ---
CLINICAL INFORMATION: Intra-abdominal mass. TECHNIQUE: Axial CT images of the abdomen and pelvis were obtained without IV contrast. Coronal and s agittal reformatted images were obtained, reviewed, and stored. Evaluation of the parenchymal organs is limited without IV contrast. Evaluation of the bowel and mesentery is limited without oral contras t. All CT scans at this medical facility are performed using dose modulation techniques as appropriat e to a performed exam including the following: Automated exposure control was utilized; adjustment of the MA and/or KV according to patient size; and use of iterative reconstruction technique. CTDIvol = 5.85 mGy DLP = 3.92 mGy-cm COMPARISON: CT ABD/PEL WO/CONTRAST on DOS: 09/09/25 FINDINGS: Lung bases: Small bilateral pleural effusions with overlying compressive atelectasis. Liver: There is mass effect in the liver by the process in the abdomen described below. Otherwise sagar ssly unremarkable noncontrast enhanced appearance of the liver. Biliary: Multiple calcified gallstones in the gallbladder. Spleen: Mild splenomegaly, with the spleen measuring up to 14.8 cm in greatest dimension. Pancreas: Pancreas is not visualized, likely obscured by the large abdominal mass or masses. Adrenal glands: Not visualized. Kidneys: Right kidney demonstrates no hydronephrosis and no renal or ureteral calculi. Left kidney is not visualized, appears to be obscured by large mass or masses in the abdomen, uncertain if the mass arises from the kidney. Poorly delineated from adjacent structures, including the stomach and small bowel loops. The mass or possibly multiple masses appears to measure up to approximately 18.8 x 9.6 x 19.3 cm, although not well evaluated without IV contrast. There is mass effect on adjacent structure s, including the spleen, bowel, aorta, and liver. There are associated calcifications. Aorta/Vascular: Dense atherosclerotic calcification. No abdominal aortic aneurysm. Aorta is deviated to the right due to The abdominal mass. Lymph nodes: Not well evaluated due to the abdominal mass obscuring visualization. Bowel/mesentery: There are some mildly distended fluid-filled small bowel loops. No focal transition point to suggest small bowel obstruction. Appendix is not visualized. There is free fluid in the abdo men and pelvis. Pelvic organs: Grossly unremarkable. Bladder: Tineo catheter within the bladder. Abdominal wall: Anasarca. There is a fluid collection in the right scrotal sac measuring up to 4 cm, possible hydrocele. Other fluid collection not excluded. Bones: No acute fracture or suspicious intraosseous lesion. IMPRESSION: 1. Suspected large mass or possibly multiple masses in the left hemiabdomen, completely obscuring the left kidney as well as portions of the stomach and bowel, suboptimally evaluated without IV contrast . Minimal minimal change compared to the previous noncontrast enhanced CT. 2. Nonspecific nondilated fluid-filled small bowel loops. Findings may be seen with ileus or enteriti s in the appropriate clinical setting. No focal transition point to suggest small bowel obstruction. 3. Free fluid in the abdomen and pelvis. 4. Anasarca. 5. Fluid collection in the right scrotal sac, may be hydrocele, other fluid collection not excluded. Correlate with clinical findings. If clinically indicated, ultrasound could be obtained to further c haracterize. 6. Small bilateral pleural effusions with overlying compressive atelectasis. 7. Cholelithiasis. 8. Additional findings as described above.
--- NOTE | 2025-09-13 12:58 | DVH ---
MRI BRAIN HEAD WO CONTRAST INDICATION: CVA, Dementia EXAM DATE: 09/13/2025 12:10 PM COMPARISON: CT HEAD W/O CONTRAST on DOS: 09/09/25 PROCEDURE: Using a 1.5 Livia scanner, multisequence multiplanar imaging of the brain was obtained. FINDINGS: The brainshows normal morphology and signal characteristics. No abnormal T2 hyperintensity, diffusion restriction, or susceptibility hypointensity is present. The ventricles are normal in size . The midline structures are intact. The major intracranial flow voids are present. The aerated space s are normal. The orbital contents and extracranial soft tissues appear normal. IMPRESSION: Unremarkable MRI findings of the brain.
--- NOTE | 2025-09-13 13:34 | DVH ---
EXAM: MRI MRI ABDOMEN NO CONTRAST HISTORY: RENAL MASS DONE W/O LABS OUT OF RANGE COMPARISON: CT CT AB PEL WO CON-NO ORAL OR IV on DOS: 09/13/25 TECHNIQUE: Multiplanar, multisequence imaging of the abdomen was performed with and without contrast. FINDINGS: [LOWER CHEST]: Small bilateral pleural effusions with compressive atelectasis in bilateral lung bases . [LIVER]: No suspicious liver lesion allowing for limitation [SPLEEN]: Unremarkable. [PANCREAS]: Poorly visualized [GALLBLADDER AND DUCTS]: Layering cholelithiasis. Gallbladder is decompressed. The cystic duct, righ t and left hepatic ducts, common hepatic duct, and common bile ducts are unremarkable. [ADRENAL GLANDS]: Poorly visualized [KIDNEYS]: In regards to the clinical question, overall limited evaluation without intravenous contra st however significant centrally cystic necrotic extensive mass presumably arising from the left kidn ey measuring 20 x 14.5 cm in axial dimension with peripheral rind of significant diffusion restrictio n. Mass demonstrates significant viable tissue extending into the right brittany hepatis. Complete enca sement of the presumably celiac and superior mesenteric artery origins with significant right lateral displacement of the abdominal aorta and inferior vena cava. Presumably left renal vein invasion wit h complete obliteration. Invasion of the pancreas not excluded given poor visualization. [VISUALIZED BOWEL]: Limited evaluation secondary to significant mass effect [VASCULATURE]: As detailed above, suspected complete invasion and subsequent thrombus of the left matty al vein. [LYMPHADENOPATHY]: Presumed conglomerate lymphadenopathy in the retroperitoneum primarily in the left para-aortic station [ASCITES]: Absent. [MUSCULOSKELETAL]: Bone marrow signal is normal. [OTHER]: None IMPRESSION: 1. Significantly limited evaluation without intravenous contrast. 2. Large centrally necrotic mass presumably arising from the left kidney with significant viable tiss ue extending into the right brittany hepatis. 3. 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 4. 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 5. Presumed conglomerate lymphadenopathy in the retroperitoneum primarily in the left para-aortic sta tion.
[2025-09-13 13:51] LABS: Free T4 (Free Thyroxine) 0.77 ng/dL (0.89-1.76)
--- NOTE | 2025-09-13 13:57 | DVHINCON2 ---
Date of service: Sep 13, 2025 Referring Physician hospitalist Reason for Consultation renal mass History of Present Illness History Source: Patient, RN Notes, MD Notes Exam Limitations: Clinical condition HPI 69-year-old male with past medical history of skin cancer, who was brought to the hospital by EMS after falling at home and being unable to get up. Patient lives in [facility], and was transferred from their hospital to here for further care. Patient is a poor historian. He states he lives alone and that he fell in his bathroom and was unable to get up. He is unsure how long he was on the floor. He states his phone was so he couldn't call for help. He had to wait until one of his neighbors heard him yelling and then came into his house to help him. States he does not have any significant medical history, but that he also does not go to the doctor. Patient had a CT of his head completed at [facility] that had no acute findings. He also had a CT of his abdomen without contrast that showed multiple masses. Recommends follow up imaging with contrast, will wait for kidney function to improve. Heme/Onc: Cancer (skin) Past Surgical History: Other (skin cancer removal) Smoke: No ALCOHOL: none Drugs: None Lives: Alone Domestic Violence: Neg H&P Exam Vital Signs Vital Signs Date Time Temp Pulse Resp B/P (MAP) Pulse Ox O2 Delivery O2 Flow Rate FiO2 09/13/25 09:00 90 18 118/68 (85) 98 09/13/25 08:00 Room Air* 0 21 09/13/25 05:00 98.1 98.1 General Appeara: Well developed, Well nourished, Normal Appearance Neck Exam: Other (left mass) Abdominal Exam: Other (left abdominal mass) Neuro/Mental St: Alert Appearance: Memory impairment Skin Exam: Normal inspection, Normal color, Warm/dry Labs/Xrays [address] [address] Ph: [phone] DIAGNOSTIC IMAGING Diagnostic Imaging Report : [id number] Signed PATIENT: AKIL BRITTON ACCT: [id number] UNIT: [id number] : 1955 LOC: CENTRAL ROOM / BED: 0221 / A AGE / SEX: 69 / M ADM STATUS: ADM IN SERVICE 0700 ORDERING PHYSICIAN: TYRONE HEARN MD PROCEDURE(s): ABPL - CT AB PEL WO CON-NO ORAL OR IV REASON: intra-abdominal mass ORDER NUMBER(s): [id number], ACCESSION NUMBER(s): [id number] CLINICAL INFORMATION: Intra-abdominal mass. TECHNIQUE: Axial CT images of the abdomen and pelvis were obtained without IV contrast. Coronal and sagittal reformatted images were obtained, reviewed, and stored. Evaluation of the parenchymal organs is limited without IV contrast. Evaluation of the bowel and mesentery is limited without oral contrast. All CT scans at this medical facility are performed using dose modulation techniques as appropriate to a performed exam including the following: Automated exposure control was utilized; adjustment of the MA and/or KV according to patient size; and use of iterative reconstruction technique. CTDIvol = 5.85 mGy DLP = 3.92 mGy-cm COMPARISON: CT ABD/PEL WO/CONTRAST on DOS: 09/09/25 FINDINGS: Lung bases: Small bilateral pleural effusions with overlying compressive atelectasis. Liver: There is mass effect in the liver by the process in the abdomen described below. Otherwise grossly unremarkable noncontrast enhanced appearance of the liver. Biliary: Multiple calcified gallstones in the gallbladder. Spleen: Mild splenomegaly, with the spleen measuring up to 14.8 cm in greatest dimension. Pancreas: Pancreas is not visualized, likely obscured by the large abdominal mass or masses. Adrenal glands: Not visualized. Kidneys: Right kidney demonstrates no hydronephrosis and no renal or ureteral calculi. Left kidney is not visualized, appears to be obscured by large mass or masses in the abdomen, uncertain if the mass arises from the kidney. Poorly deli neated from adjacent structures, including the stomach and small bowel loops. The mass or possibly multiple masses appears to measure up to approximately 18.8 x 9.6 x 19.3 cm, although not well evaluated without IV contrast. There is mass effect on adjacent structures, including the spleen, bowel, aorta, and liver. There are associated calcifications. Aorta/Vascular: Dense atherosclerotic calcification. No abdominal aortic aneurysm. Aorta is deviated to the right due to The abdominal mass. Lymph nodes: Not well evaluated due to the abdominal mass obscuring visualization. Bowel/mesentery: There are some mildly distended fluid-filled small bowel loops. No focal transition point to suggest small bowel obstruction. Appendix is not visualized. There is free fluid in the abdomen and pelvis. Pelvic organs: Grossly unremarkable. Bladder: Shafer catheter within the bladder. Abdominal wall: Anasarca. There is a fluid collection in the right scrotal sac measuring up to 4 cm, possible hydrocele. Other fluid collection not excluded. Bones: No acute fracture or suspicious intraosseous lesion. IMPRESSION: 1. Suspected large mass or possibly multiple masses in the left hemiabdomen, completely obscuring the left kidney as well as portions of the stomach and b owel, suboptimally evaluated without IV contrast. Minimal minimal change compared to the previous noncontrast enhanced CT. 2. Nonspecific nondilated fluid-filled small bowel loops. Findings may be seen with ileus or enteritis in the appropriate clinical setting. No focal transition point to suggest small bowel obstruction. 3. Free fluid in the abdomen and pelvis. 4. Anasarca. 5. Fluid collection in the right scrotal sac, may be hydrocele, other fluid collection not excluded. Correlate with clinical findings. If clinically indicated, ultrasound could be obtained to further characterize. 6. Small bilateral pleural effusions with overlying compressive atelectasis. 7. Cholelithiasis. 8. Additional findings as described above. ATED BY: DARREN HAGER DO DICTATED DATE/TIME: 09/13/25931 SIGNED BY: DARREN HAGER DO SIGNED DATE/TIME: 09/13/25931 CC: [place] [address] Ph: [phone] DIAGNOSTIC IMAGING Diagnostic Imaging Report : [id number] Signed PATIENT: AKIL BRITTON ACCT: [id number] UNIT: [id number] : 1955 LOC: CENTRAL ROOM / BED: [facility] / A AGE / SEX: 69 / M ADM STATUS: ADM IN SERVICE 47 ORDERING PHYSICIAN: CHRISTOPHER PINON MD PROCEDURE(s): KIDUS - KIDNEY REASON: acute kidney injury ORDER NUMBER(s): [id number], ACCESSION NUMBER(s): [id number] INDICATION: acute kidney injury TECHNIQUE: Multiple real-time sonographic images of the kidneys and bladder were obtained. COMPARISON: None FINDINGS: RIGHT kidney measures 10.6 cm in length. No stones are hydronephrosis. Echogenicity is normal. Left kidney not visualized. Large mass adjacent to the spleen measuring up to 22 cm, uncertain if this represents the kidney. No large intraluminal masses are seen in the bladder. No significant postvoid residual. Trace fluid seen in the right upper quadrant right lower quadrant. IMPRESSION: Left kidney not visualized, instead replaced by a large mass adjacent to the spleen, possibly invading the kidney. No right-sided hydronephrosis. ATED BY: BRADEN ALANIS MD DICTATED DATE/TIME: 09/11/251903 SIGNED BY: BRADEN ALANIS MD SIGNED DATE/TIME: 09/11/251903 CC: Labs Test 09/13/25 04:30 09/12/25 23:40 09/12/25 22:48 09/11/25 04:39 Range/Units White Blood Count 4.0 L 4.4-10.8 10^3/uL Red Blood Count 3.50 L 4.5-5.90 10^6/uL Hemoglobin 10.0 L 13.5-17.5 g/dL Hematocrit 30.0 L 41.0-53.0 % Mean Corpuscular Volume 85.7 80.0-100.0 fL Mean Corpuscular Hemoglobin 28.7 28.0-32.0 pg Mean Corpuscular Hemoglobin Concent 33.5 32.0-36.0 g/dL Red Cell Distribution Width 19.7 H 11.8-14.3 % Platelet Count 93 L 140-450 10^3/uL Mean Platelet Volume 7.7 6.9-10.8 fL Neutrophils (%) (Auto) 63.6 37.0-80.0 % Lymphocytes (%) (Auto) 31.8 10.0-50.0 % Monocytes (%) (Auto) 3.8 0.0-12.0 % Eosinophils (%) (Auto) 0.5 0.0-7.0 % Basophils (%) (Auto) 0.3 0.0-2.0 % Neutrophils # (Auto) 2.5 1.6-8.6 10 ^3/uL Lymphocytes # (Auto) 1.3 0.4-5.4 10 ^3/uL Monocytes # (Auto) 0.2 0-1.3 10 ^3/uL Eosinophils # (Auto) 0 0-0.8 10 ^3/uL Basophils # (Auto) 0 0-0.2 10 ^3/uL Nucleated Red Blood Cells 0.1 % Sodium Level 138 136-145 mmol/L Potassium Level 3.8 3.5-5.1 mmol/L Chloride Level 107 98-107 mmol/L Carbon Dioxide Level 19 L 20-31 mmol/L Anion Gap 12 5-15 Blood Urea Nitrogen 77 #H 9-23 mg/dL Creatinine 2.43 H 0.700-1.30 mg/dL Glomerular Filtration Rate Calc 28 >90 mL/min BUN/Creatinine Ratio 31.7 H 10.0-20.0 Serum Glucose 90 74-106 mg/dL Calcium Level 9.6 8.7-10.4 mg/dL Urine Opiates Screen Neg NEGATIVE Urine Fentanyl Screen Neg NEGATIVE Urine Barbiturates Screen Neg NEGATIVE Urine Phencyclidine Screen Neg NEGATIVE Urine Amphetamines Screen Neg NEGATIVE Urine Benzodiazepines Screen Neg NEGATIVE Urine Cocaine Screen Neg NEGATIVE Urine Cannabinoids Screen Neg NEGATIVE Thyroid Stimulating Hormone (TSH) 18.18 H 0.55-4.78 uIU/mL Total Bilirubin 0.5 0.2-1.0 mg/dL Aspartate Amino Transferase (AST) 45 H 13-40 U/L Alanine Aminotransferase (ALT) < 9 7-40 U/L Alkaline Phosphatase 78 46-116 U/L Creatine Kinase 101 46-171 U/L Total Protein 7.5 5.7-8.2 g/dL Albumin 3.0 L 3.2-4.8 g/dL Test 09/10/25 13:22 09/10/25 01:26 Range/Units Urine Color Light-orange Yellow Urine Clarity Ex.turbid Clear Urine pH 5.0 5.0-9.0 Urine Specific [place] 1.018 1.001-1.035 Urine Protein 1+ H Negative Urine Ketones Negative Negative Urine Blood 2+ H Negative /uL Urine Nitrite Negative Negative Urine Bilirubin Negative Negative Urine Urobilinogen Normal Negative mg/dL Urine Leukocyte Esterase 3+ Negative /uL Urine RBC 70 0 - 3 /hpf Urine WBC Clumps Present None Seen /hpf Urine Microscopic WBC 196 H 0-3 /HPF Urine Squamous Epithelial Cells Few <5 /hpf Urine Calcium Oxalate Crystals Few None Seen Urine Bacteria Few H None Seen /hpf Urine Hyaline Casts Mod 0 - 2 /lpf Urine Mucus Few None Seen Urine Glucose Normal Normal mg/dL Prothrombin Time 13.0 H 9.3-11.8 sec Prothrombin Time INR 1.25 H 0.9-1.15 Activated Partial Thromboplast Time 33.6 24.5-34.5 SEC Microbiology Date/Time Source Procedure Growth Status 09/10/25 20:35 Nose MRSA Screen - Final Complete Assessment/Plan Problem List: (1) Renal mass (2) Dehydration (3) Acute renal failure (4) Rhabdomyolysis Plan MRI pending mass is non resectable consider biopsy tumor markers ordered keep shafer recommend oncology consultation palliative care consult Plan discussed with: Patient, Other AXEL SLADE NP Sep 13, 2025 13:57
--- NOTE | 2025-09-13 15:01 | DVHPN2 ---
Reviewed: H&P Changes from previous H/P or p: No Changes General: Per HPI Eyes: No Pain, No Vision change, No Conjunctivae inflammation, No Eyelid inflammation, No Other, No Redness ENT: No Ear pain, No Ear discharge, No Nose pain, No Nose discharge, No Nose congestion, No Mouth pain, No Mouth swelling, No Throat pain, No Throat swelling, No Other Cardiovascular: No Chest Pain, No Palpitations, No Orthopnea, No Paroxysmal Noc. Dyspnea, No Edema, No Lt Headedness, No Other Respiratory: No Cough, No Dry, No Shortness of breath, No SOB with excertion, No Wheezing, No Hemoptysis, No Pleuritic Pain, No Sputum, No Other Gastrointestinal: No Nausea, No Vomiting, No Abdominal Pain, No Diarrhea, No Constipation, No Melena, No Hematochezia, No Other Genitourinary: No Dysuria, No Frequency, No Incontinence, No Hematuria, No Retention, No Other Musculoskeletal: No other, No neck pain, No shoulder pain, No arm pain, No back pain, No hand pain, No leg pain, No foot pain Skin: No Rash, No Lesions, No Jaundice, No Bruising, No Other Objective Vitals Vital Signs Date Time Temp Pulse Resp B/P (MAP) Pulse Ox O2 Delivery O2 Flow Rate FiO2 09/13/25 09:00 90 18 118/68 (85) 98 09/13/25 08:00 Room Air* 0 21 09/13/25 05:00 98.1 98.1 Intake/Output Intake and Output 09/13/25 07:00 Intake Total 6301 ml Output Total 831 ml Balance 5470 ml Intake Oral 3301 ml IV Total 1000 ml Tube Feeding 2000 ml Output Urine Total 825 ml Stool Total 6 ml General Appearance: Alert, Oriented X3, Cooperative, No acute distress Lungs: Clear to auscultation Cardiovascular: Regular rate, Normal S1, Normal S2 Abdomen: Normal bowel sounds, Soft, Other (hard mass left side of abdomen 10 cm) Musculoskeletal: Normal sensory function, Normal motor function Extremities: No edema Neuro: Normal speech, Strength at 5/5 X4 ext, Normal tone, Sensation intact, C ranial nerves 3-12 NL, Other (not confused now- but per nurse intermittent confusion) Psych/Mental Status: Mental status NL (alert,awake.oriented -2), Mood NL Medications Current Medications Medications Dose Ordered Sig/Steven Route Start Time Stop Time Status Last Admin Dose Admin Sodium Chloride 1,000 ml @ 75 mls/hr [id number] IV 09/10/25 10:30 09/13/25 05:28 75 MLS/HR Acetaminophen/ Hydrocodone Bitart 1 tab Q4HP PRN PO 09/10/25 10:30 Ondansetron HCl 4 mg Q4HP PRN IV 09/10/25 10:30 Docusate Sodium 100 mg BIDPRN PRN PO 09/10/25 10:30 Enoxaparin Sodium 30 mg DAILY SC 09/11/25 10:00 09/13/25 08:53 30 MG Acetaminophen 650 mg Q6HP PRN PO 09/10/25 10:30 Haloperidol Lactate 5 mg Q8HP PRN IM 09/11/25 07:00 09/11/25 07:19 5 MG Ceftriaxone Sodium 50 ml @ 100 mls/hr DAILY@09 IV 09/11/25 09:00 09/13/25 08:53 100 MLS/HR Metronidazole 500 mg Q8HR PO 09/12/25 22:00 09/13/25 14:00 500 MG Lorazepam 1 mg ONCE PRN IV 09/12/25 22:00 Laboratory Results Laboratory Tests 09/13/25 04:30 Chemistry Test 09/13/25 04:30 Calcium Level 9.6 mg/dL (8.7-10.4) HgA1c, TSH Test 09/12/25 22:48 Thyroid Stimulating Hormone (TSH) 18.18 uIU/mL (0.55-4.78) H Urinalysis Test 09/10/25 13:22 Urine Color Light-orange (Yellow) Urine Clarity Ex.turbid (Clear) Urine pH 5.0 (5.0-9.0) Urine Specific [place] 1.018 (1.001-1.035) Urine Protein 1+ (Negative) H Urine Ketones Negative (Negative) Urine Blood 2+ /uL (Negative) H Urine Nitrite Negative (Negative) Urine Bilirubin Negative (Negative) Urine Urobilinogen Normal mg/dL (Negative) Urine Leukocyte Esterase 3+ /uL (Negative) Urine RBC 70 /hpf (0 - 3) Urine WBC Clumps Present /hpf (None Seen) Urine Microscopic WBC 196 /HPF (0-3) H Urine Squamous Epithelial Cells Few /hpf (<5) Urine Calcium Oxalate Crystals Few (None Seen) Urine Bacteria Few /hpf (None Seen) H Urine Hyaline Casts Mod /lpf (0 - 2) Urine Mucus Few (None Seen) Urine Glucose Normal mg/dL (Normal) Microbiology Microbiology Date/Time Source Procedure Growth Status 09/12/25 09:45 Stool Clostridium difficile Toxin Assay - Final Complete 09/10/25 20:35 Nose MRSA Screen - Final Complete Labs and/or images reviewed: Labs reviewed by me, Image(s) reviewed by me Assessment/Plan Assessment/Plan 69-year-old male with past medical history of skin cancer, who was brought to the hospital by EMS after falling at home and being unable to get up. Patient lives in [facility] [place], and was transferred from their hospital to here for further care. Patient is a poor historian. He states he lives alone and that he fell in his bathroom and was unable to get up. He is unsure how long he was on the floor. He states his phone was so he couldn't call for help. He had to wait until one of his neighbors heard him yelling and then came into his house to help him. States he does not have any significant medical history, but that he also does not go to the doctor. Patient had a CT of his head completed at [facility] that had no acute findings. He also had a CT of his abdomen without contrast that showed multiple masses. Recommends follow up imaging with contrast, will wait for kidney function to improve. 09/13: Patient is A&O x2, severely cachectic, bowel sounds normal, delta precaution left flank, S1-S2, adequate air movement in all lung desai. He denies smoking ever. Last seen a doctor was 20+ years ago. Patient endorses that he would like to stay full code. We will start tele. [facility] for IR biopsy of left flank mass tomorrow. Urology following. Diagnosis: Large abdominal mass, renal source likely, no metastatic foci found, nonresectable Shifted abdominal organs due to mass as above Encasing vessels and arteries, Found down, fall and/or syncope Rhabdomyolysis JULIETTE due to VMN Failure to thrive Physical deconditioning Plan: IV hydration fluids Consult Nephrology appreciate recommendations Consult Urology appreciate recommendations Consult Radiology, Interventional, appreciate recommendations Fall risk PT - recommending SNF rehab Tele Full code Plan discussed with: Patient My Orders Orders - BRAD HOYT MD Procedure Category Date Status Time Transfer Orders XFER 09/13/25 Transmitted 14:54 Date of Service: Sep 13, 2025 Billing Provider: BRAD HOYT MD Common Visit Codes: [id number] INP/OBS CARE(HIGH) BRAD HOYT MD Sep 13, 2025 15:01
--- NOTE | 2025-09-13 15:50 | DVHPN2 ---
Progress Note Date Seen: Sep 13, 2025 Medical Necessity Reason Pt with a Central, PICC or Fol: Yes The following are medically ne: Shafer Catheter Reason for shafer catheter: Bladder Retention/Obstruc Objective vital signs Vital Sign Date Time Temp Pulse Resp B/P (MAP) Pulse Ox O2 Delivery O2 Flow Rate FiO2 09/13/25 13:00 97.0 82 17 153/89 (110) 99 97.0 09/13/25 08:00 Room Air* 0 21 Total Intake and Output 09/12/25 09/12/25 09/13/25 15:00 23:00 07:00 Intake Total 2061 ml 1240 ml 3000 ml Output Total 378 ml 453 ml Balance 2061 ml 862 ml 2547 ml medications Current Medications Medications Dose Ordered Sig/Steven Route Start Time Stop Time Status Last Admin Dose Admin Sodium Chloride 1,000 ml @ 75 mls/hr [id number] IV 09/10/25 10:30 09/13/25 05:28 75 MLS/HR Acetaminophen/ Hydrocodone Bitart 1 tab Q4HP PRN PO 09/10/25 10:30 Ondansetron HCl 4 mg Q4HP PRN IV 09/10/25 10:30 Docusate Sodium 100 mg BIDPRN PRN PO 09/10/25 10:30 Enoxaparin Sodium 30 mg DAILY SC 09/11/25 10:00 09/13/25 08:53 30 MG Acetaminophen 650 mg Q6HP PRN PO 09/10/25 10:30 Haloperidol Lactate 5 mg Q8HP PRN IM 09/11/25 07:00 09/11/25 07:19 5 MG Ceftriaxone Sodium 50 ml @ 100 mls/hr DAILY@09 IV 09/11/25 09:00 09/13/25 08:53 100 MLS/HR Metronidazole 500 mg Q8HR PO 09/12/25 22:00 09/13/25 14:00 500 MG Lorazepam 1 mg ONCE PRN IV 09/12/25 22:00 Examination: GENERAL:Abnormal, NEURO:Normal, :Abnormal laboratory and microbiology Laboratory Tests 09/13/25 04:30 Test 09/13/25 04:30 Range/Units Serum Glucose 90 74-106 mg/dL Microbiology Date/Time Source Procedure Growth Status 09/12/25 09:45 Stool Clostridium difficile Toxin Assay - Final Complete 09/10/25 20:35 Nose MRSA Screen - Final Complete Problem List/Assessment/Plan Problem List/Assessment/Plan Acute kidney injury likely hemodynamically mediated with possible superimposed obstruction -continue with conservative management IV fluid hydration and p.o. as tolerated - Urology chronic kidney disease unspecified baseline unknown due to poor establishment of nephrology care Large necrotic abdominal mass with left kidney involvement and colonic involvement -patient declines medical therapy for probable cancer -consider obtaining palliative Care and Oncology -Urology From a nephrology standpoint there is no urgent or emergent indication for dialysis at this time we will consider conservative management renal function slowly improving Rest of care as per primary medical team MRI imaging results noted below IMPRESSION: 1. Significantly limited evaluation without intravenous contrast. 2. Large centrally necrotic mass presumably arising from the left kidney with significant viable tissue extending into the right brittany hepatis. 3. 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 4. 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 5. Presumed conglomerate lymphadenopathy in the retroperitoneum primarily in the left para-aortic station. Plan discussed with: Patient Dietary Evaluation Review Recommendations by RD: Increase Calorie Intake Comments: 1) Initiate Nepro bid 2) Consider adding renal standard restriction to diet 3) Encourage optimal PO intake 4) Follow-up with oncology and nephrology 5) Continue to monitor I&O, labs, and skin integrity Expected Outcomes/Goals: 1) appetite and labs to improve 2) gradual wt gain 3) f/u in 3-5 days GUILLE MUNOZ MD Sep 13, 2025 15:50
[2025-09-14] VITALS (8 sets, daily range): BP systolic 117–133; BP diastolic 77–84; PULSE 83–92; RESP 16–18; TEMP 97.6–98.1; O2SAT 95–99
[2025-09-14 07:10] LABS: Hematocrit 29.3 % (41.0-53.0); Hemoglobin 9.9 g/dL (13.5-17.5); Mean Corpuscular Hemoglobin 28.7 pg (28.0-32.0); Mean Corpuscular Volume 84.7 fL (80.0-100.0); Nucleated Red Blood Cells % 0.0 %
[2025-09-14 07:23] LABS: Anion Gap 12 (5-15); Potassium 4.0 mmol/L (3.5-5.1); Sodium 138 mmol/L (136-145)
[2025-09-14 07:24] LABS: Calcium 9.4 mg/dL (8.7-10.4)
[2025-09-14 07:29] LABS: BUN/Creatinine Ratio 34.6 (10.0-20.0); Glucose 89 mg/dL (74-106)
[2025-09-14 07:33] LABS: Carbon Dioxide 19 mmol/L (20-31); Chloride 107 mmol/L (98-107)
[2025-09-14 07:34] LABS: Blood Urea Nitrogen 79 mg/dL (9-23)
[2025-09-14 10:07] LABS: Prostate Specific Antigen 1.6 ng/mL (0.0-4.0)
--- NOTE | 2025-09-14 10:07 | DVHPN2 ---
Progress Note Date Seen: Sep 14, 2025 Medical Necessity Reason Pt with a Central, PICC or Fol: Yes The following are medically ne: Shafer Catheter Reason for shafer catheter: Bladder Retention/Obstruc Objective vital signs Vital Sign Date Time Temp Pulse Resp B/P (MAP) Pulse Ox O2 Delivery O2 Flow Rate FiO2 09/14/25 08:43 97.6 88 18 133/84 (100) 99 97.6 09/13/25 20:00 Room Air* 0 21 Total Intake and Output 09/13/25 09/13/25 09/14/25 15:00 23:00 07:00 Intake Total 50 ml 200 ml 1250 ml Output Total 500 ml 800 ml Balance 50 ml -300 ml 450 ml medications Current Medications Medications Dose Ordered Sig/Steven Route Start Time Stop Time Status Last Admin Dose Admin Sodium Chloride 1,000 ml @ 75 mls/hr [id number] IV 09/10/25 10:30 09/14/25 09:12 75 MLS/HR Acetaminophen/ Hydrocodone Bitart 1 tab Q4HP PRN PO 09/10/25 10:30 Ondansetron HCl 4 mg Q4HP PRN IV 09/10/25 10:30 Docusate Sodium 100 mg BIDPRN PRN PO 09/10/25 10:30 Enoxaparin Sodium 30 mg DAILY SC 09/11/25 10:00 09/13/25 08:53 30 MG Acetaminophen 650 mg Q6HP PRN PO 09/10/25 10:30 Haloperidol Lactate 5 mg Q8HP PRN IM 09/11/25 07:00 09/11/25 07:19 5 MG Ceftriaxone Sodium 50 ml @ 100 mls/hr DAILY@09 IV 09/11/25 09:00 09/14/25 09:07 100 MLS/HR Metronidazole 500 mg Q8HR PO 09/12/25 22:00 09/14/25 05:27 500 MG Lorazepam 1 mg ONCE PRN IV 09/12/25 22:00 laboratory and microbiology Laboratory Tests 09/14/25 06:31 Test 09/14/25 06:31 Range/Units Serum Glucose 89 74-106 mg/dL Microbiology Date/Time Source Procedure Growth Status 09/12/25 09:45 Stool Clostridium difficile Toxin Assay - Final Complete 09/10/25 20:35 Nose MRSA Screen - Final Complete Problem List/Assessment/Plan Problem List/Assessment/Plan Acute kidney injury likely hemodynamically mediated with possible superimposed obstruction -continue with conservative management IV fluid hydration and p.o. as tolerated - Urology chronic kidney disease unspecified baseline unknown due to poor establishment of nephrology care Large necrotic abdominal mass with left kidney involvement and colonic involvement -patient declines medical therapy for probable cancer -consider obtaining palliative Care and Oncology -Urology From a nephrology standpoint there is no urgent or emergent indication for dialysis at this time we will consider conservative management renal function slowly improving Rest of care as per primary medical team MRI imaging results noted below IMPRESSION: 1. Significantly limited evaluation without intravenous contrast. 2. Large centrally necrotic mass presumably arising from the left kidney with significant viable tissue extending into the right brittany hepatis. 3. 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 4. 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 5. Presumed conglomerate lymphadenopathy in the retroperitoneum primarily in the left para-aortic station. Plan discussed with: Patient Dietary Evaluation Review Recommendations by RD: Increase Calorie Intake Comments: 1) Initiate Nepro bid 2) Consider adding renal standard restriction to diet 3) Encourage optimal PO intake 4) Follow-up with oncology and nephrology 5) Continue to monitor I&O, labs, and skin integrity Expected Outcomes/Goals: 1) appetite and labs to improve 2) gradual wt gain 3) f/u in 3-5 days GUILLE MUNOZ MD Sep 14, 2025 10:07
--- NOTE | 2025-09-14 10:24 | DVHPN2 ---
Reviewed: H&P Changes from previous H/P or p: No Changes General: Per HPI Eyes: No Pain, No Vision change, No Conjunctivae inflammation, No Eyelid inflammation, No Other, No Redness ENT: No Ear pain, No Ear discharge, No Nose pain, No Nose discharge, No Nose congestion, No Mouth pain, No Mouth swelling, No Throat pain, No Throat swelling, No Other Cardiovascular: No Chest Pain, No Palpitations, No Orthopnea, No Paroxysmal Noc. Dyspnea, No Edema, No Lt Headedness, No Other Respiratory: No Cough, No Dry, No Shortness of breath, No SOB with excertion, No Wheezing, No Hemoptysis, No Pleuritic Pain, No Sputum, No Other Gastrointestinal: No Nausea, No Vomiting, No Abdominal Pain, No Diarrhea, No Constipation, No Melena, No Hematochezia, No Other Genitourinary: No Dysuria, No Frequency, No Incontinence, No Hematuria, No Retention, No Other Musculoskeletal: No other, No neck pain, No shoulder pain, No arm pain, No back pain, No hand pain, No leg pain, No foot pain Skin: No Rash, No Lesions, No Jaundice, No Bruising, No Other Objective Vitals Vital Signs Date Time Temp Pulse Resp B/P (MAP) Pulse Ox O2 Delivery O2 Flow Rate FiO2 09/14/25 08:43 97.6 88 18 133/84 (100) 99 97.6 09/13/25 20:00 Room Air* 0 21 Intake/Output Intake and Output 09/14/25 07:00 Intake Total 1500 ml Output Total 1300 ml Balance 200 ml Intake Oral 550 ml IV Total 950 ml Output Urine Total 1300 ml # Bowel Movements 5 General Appearance: Alert, Oriented X3, Cooperative, No acute distress Lungs: Clear to auscultation Cardiovascular: Regular rate, Normal S1, Normal S2 Abdomen: Normal bowel sounds, Soft, Other (hard mass left side of abdomen 10 cm) Musculoskeletal: Normal sensory function, Normal motor function Extremities: No edema Neuro: Normal speech, Strength at 5/5 X4 ext, Normal tone, Sensation intact, C ranial nerves 3-12 NL, Other (not confused now- but per nurse intermittent confusion) Psych/Mental Status: Mental status NL (alert,awake.oriented -2), Mood NL Medications Current Medications Medications Dose Ordered Sig/Steven Route Start Time Stop Time Status Last Admin Dose Admin Sodium Chloride 1,000 ml @ 75 mls/hr [id number] IV 09/10/25 10:30 09/14/25 09:12 75 MLS/HR Acetaminophen/ Hydrocodone Bitart 1 tab Q4HP PRN PO 09/10/25 10:30 Ondansetron HCl 4 mg Q4HP PRN IV 09/10/25 10:30 Docusate Sodium 100 mg BIDPRN PRN PO 09/10/25 10:30 Enoxaparin Sodium 30 mg DAILY SC 09/11/25 10:00 09/13/25 08:53 30 MG Acetaminophen 650 mg Q6HP PRN PO 09/10/25 10:30 Haloperidol Lactate 5 mg Q8HP PRN IM 09/11/25 07:00 09/11/25 07:19 5 MG Ceftriaxone Sodium 50 ml @ 100 mls/hr DAILY@09 IV 09/11/25 09:00 09/14/25 09:07 100 MLS/HR Metronidazole 500 mg Q8HR PO 09/12/25 22:00 09/14/25 05:27 500 MG Lorazepam 1 mg ONCE PRN IV 09/12/25 22:00 Laboratory Results Laboratory Tests 09/14/25 06:31 Chemistry Test 09/14/25 06:31 Calcium Level 9.4 mg/dL (8.7-10.4) Urinalysis Test 09/10/25 13:22 Urine Color Light-orange (Yellow) Urine Clarity Ex.turbid (Clear) Urine pH 5.0 (5.0-9.0) Urine Specific [place] 1.018 (1.001-1.035) Urine Protein 1+ (Negative) H Urine Ketones Negative (Negative) Urine Blood 2+ /uL (Negative) H Urine Nitrite Negative (Negative) Urine Bilirubin Negative (Negative) Urine Urobilinogen Normal mg/dL (Negative) Urine Leukocyte Esterase 3+ /uL (Negative) Urine RBC 70 /hpf (0 - 3) Urine WBC Clumps Present /hpf (None Seen) Urine Microscopic WBC 196 /HPF (0-3) H Urine Squamous Epithelial Cells Few /hpf (<5) Urine Calcium Oxalate Crystals Few (None Seen) Urine Bacteria Few /hpf (None Seen) H Urine Hyaline Casts Mod /lpf (0 - 2) Urine Mucus Few (None Seen) Urine Glucose Normal mg/dL (Normal) Microbiology Microbiology Date/Time Source Procedure Growth Status 09/12/25 09:45 Stool Clostridium difficile Toxin Assay - Final Complete 09/10/25 20:35 Nose MRSA Screen - Final Complete Labs and/or images reviewed: Labs reviewed by me, Image(s) reviewed by me Assessment/Plan Assessment/Plan 69-year-old male with past medical history of skin cancer, who was brought to the hospital by EMS after falling at home and being unable to get up. Patient lives in [facility], and was transferred from their hospital to here for further care. Patient is a poor historian. He states he lives alone and that he fell in his bathroom and was unable to get up. He is unsure how long he was on the floor. He states his phone was so he couldn't call for help. He had to wait until one of his neighbors heard him yelling and then came into his house to help him. States he does not have any significant medical history, but that he also does not go to the doctor. Patient had a CT of his head completed at [facility] that had no acute findings. He also had a CT of his abdomen without contrast that showed multiple masses. Recommends follow up imaging with contrast, will wait for kidney function to improve. 09/13: Patient is A&O x2, severely cachectic, bowel sounds normal, delta precaution left flank, S1-S2, adequate air movement in all lung desai. He denies smoking ever. Last seen a doctor was 20+ years ago. Patient endorses that he would like to stay full code. We will start tele. [facility] for IR biopsy of left flank mass tomorrow. Urology following. 09/14: Patient now A&O x4. Tolerating p.o., urinating, passing gas. Severely cachectic. Patient wants to final diagnosis. We will continue to ask Radiology if the sample can be taken, even though it is nonresectable. PT is working with patient, initial recommendations for SNF for rehab. We have discussed hospice with the patient, he wants to continue taking for the idea, not completely onboard at this point. Patient has no social support. Patient wants to continue to be full code Diagnosis: Large abdominal mass, renal source likely, no metastatic foci found, nonresectable Shifted abdominal organs due to mass as above Encasing vessels and arteries, Found down, fall and/or syncope Rhabdomyolysis JULIETTE due to VMN Failure to thrive Physical deconditioning Plan: IV hydration fluids Consult Nephrology appreciate recommendations Consult Urology appreciate recommendations Consult Radiology, Interventional, appreciate recommendations Fall risk PT - recommending SNF rehab Tele Full code Plan discussed with: Patient My Orders Orders - BRAD HOYT MD Procedure Category Date Status Time Transfer Orders XFER 09/13/25 Transmitted 14:54 Date of Service: Sep 14, 2025 Billing Provider: BRAD HOYT MD Common Visit Codes: [id number] INP/OBS CARE(HIGH) BRAD HOYT MD Sep 14, 2025 10:24
--- NOTE | 2025-09-14 18:54 | DVHPN2 ---
Progress Note - Dictate Date Seen: Sep 14, 2025 Medical Necessity Reason Pt with a Central, PICC or Fol: Yes The following are medically ne: Shafer Catheter Reason for shafer catheter: Bladder Retention/Obstruc Subjective Mr. Mahmood is a 69 years old gentleman with a history of cancer, the patient was transferred from the [facility]. The patient is awake, with good social skills I have seen and examined the patient, I have talked to his nurse and sitter, he reports doing fine, awake, oriented to person, place, he knows year and the month He moves both arms and legs, [facility] PT/INR/APTT 09/09/2025:12.4/1.17/26.7 BUN/CR, 09/09/2025: 126/3.2 Lactic acid, 09/09/2025: 2.1 CPK, 09/09/25: 258 NH3, 09/09/2025: <9 Vitamin B12, 09/12/25: 1240 Folic acid, 08/2025: 2.47 TSH, 09/12/2025: 18.18 FT4, 08/2020 5:0.77 CT head, 09/09/2025: No acute intracranial abnormality. Large cystic appearance structure within the right posterior scalp, possibly a large sebaceous cyst CT abdomen/pelvis, 09/09/2025: Limited assessment and without contrast. Multiple large masses oriented times in the upper and mid abdomen. Arranging not clear without contrast. Left kidney not visualized, possible intubated by the mass MRI head, 09/13/2025: Unremarkable MRI findings of the brain. MRI abdomen, 09/13/2025: 1. Significantly limited evaluation without intravenous contrast. 2. Large centrally necrotic mass presumably arising from the left kidney with significant viable tissue extending into the right brittany hepatis. 3. 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 4. 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 5. Presumed conglomerate lymphadenopathy in the retroperitoneum primarily in the left para-aortic station Urinalysis, 09/10/2025: WBC: 196, urine leukocyte esterase: 3+ WBC/HB/PLT/MCV, 09/11/2025: 3.7/9.9/110/85 PT/INR/ABG, 09/10/2025: 13/1.25/33.6 BUN/CR, 09/10/2025: 121/2.87, 08/1025: 92/2.74, 09/13/2025: 77/2.43 HCO3 09/11/2025: 19, 09/13/2025: 19 GFR, 09/10/2025: 23, 09/18: 24 TBI/AST/ALT/AP, 09/10/2025: 0.6/52/12/88 CK, 09/10/2025: 244, 09/11/25: 103 Ultrasound, 09/11/2025: Left kidney not visualized, instead replaced by a large mass adjacent to the spleen, possibly invading the kidney. No right-sided hydronephrosis. Chest x-ray, 09/10/2025: No acute disease vital signs Vital Sign Date Time Temp Pulse Resp B/P (MAP) Pulse Ox O2 Delivery O2 Flow Rate FiO2 09/14/25 16:40 97.9 85 18 127/81 (96) 95 97.9 09/14/25 08:00 Room Air* 0 21 Total Intake and Output 09/13/25 09/13/25 09/14/25 15:00 23:00 07:00 Intake Total 50 ml 200 ml 1250 ml Output Total 500 ml 800 ml Balance 50 ml -300 ml 450 ml medications Current Medications Medications Dose Ordered Sig/Steven Route Start Time Stop Time Status Last Admin Dose Admin Sodium Chloride 1,000 ml @ 75 mls/hr [id number] IV 09/10/25 10:30 09/14/25 09:12 75 MLS/HR Acetaminophen/ Hydrocodone Bitart 1 tab Q4HP PRN PO 09/10/25 10:30 Ondansetron HCl 4 mg Q4HP PRN IV 09/10/25 10:30 Docusate Sodium 100 mg BIDPRN PRN PO 09/10/25 10:30 Enoxaparin Sodium 30 mg DAILY SC 09/11/25 10:00 09/13/25 08:53 30 MG Acetaminophen 650 mg Q6HP PRN PO 09/10/25 10:30 Haloperidol Lactate 5 mg Q8HP PRN IM 09/11/25 07:00 09/11/25 07:19 5 MG Ceftriaxone Sodium 50 ml @ 100 mls/hr DAILY@09 IV 09/11/25 09:00 09/14/25 09:07 100 MLS/HR Metronidazole 500 mg Q8HR PO 09/12/25 22:00 09/14/25 14:05 500 MG Lorazepam 1 mg ONCE PRN IV 09/12/25 22:00 objective General: the patient is well developed and nourished. No acute distress. He is cachexia MENTAL STATUS: Awake, only oriented to himself SPEECH, LANGUAGE, HIGHER CORTICAL FUNCTION: no aphasia or dysathria. CRANIAL NERVES:Pupils are equal, round and reactive. EOMs full and conjugate. No nystagmus. Facial sensation intact in all three divisions bilaterally. Mandibular strength intact. Facial muscles symmetrical and strength intact. Tongue midline. No fasciculations or atrophy. SENSATION: Sensation to touch and pinprick is normal. MOTOR: Normal tone in the upper and lower extremity. Normal muscle bulk. No fasciculations. No abnormal movements or posturing. Muscle strength of the major groups in the upper extremities is 4/5. He moves the legs REFLEXES: Deep tendon reflexes normal and symmetrical. No pathological reflexes. CEREBELLAR/COORDINATION: Finger to nose is normal bilaterally GAIT/STATION: deferred. laboratory and microbiology Laboratory Tests 09/14/25 06:31 Test 09/14/25 06:31 Range/Units Serum Glucose 89 74-106 mg/dL Problem List Altered mental status Metabolic encephalopathy Intra-abdominal mass lesion, ? Malignancy Cachexia ? Secondary to abdominal mass Acute kidney failure Left leg weakness Hypothyroidism Assessment/Plan Monitoring Supportive treatment Med surge EEG Nephrology consultation Urology consultation Hematology consultation More recommendation per clinical course This medical document was created using an electronic medical record system with [employer] dictation system. Although this document has been carefully reviewed, there may still be some phonetic and typographical errors. These areas are purely typographical due to imperfections of the software programs, and do not reflect any compromise in the patient's medical care. Prognosis poor Dietary Evaluation Review Recommendations by RD: Increase Calorie Intake Comments: 1) Initiate Nepro bid 2) Consider adding renal standard restriction to diet 3) Encourage optimal PO intake 4) Follow-up with oncology and nephrology 5) Continue to monitor I&O, labs, and skin integrity Expected Outcomes/Goals: 1) appetite and labs to improve 2) gradual wt gain 3) f/u in 3-5 days Plan discussed with: Other SHANTAL WINTER MD Sep 14, 2025 18:54
[2025-09-14] MEDS: metroNIDAZOLE 500 MG TAB PO ONE (21:38)
[2025-09-15] VITALS (8 sets, daily range): BP systolic 120–136; BP diastolic 80–90; PULSE 80–93; RESP 16–19; TEMP 97.8–98.4; O2SAT 95–99
[2025-09-15 06:20] LABS: Hematocrit 28.5 % (41.0-53.0); Hemoglobin 9.7 g/dL (13.5-17.5); Mean Corpuscular Hemoglobin 28.8 pg (28.0-32.0); Mean Corpuscular Volume 85.0 fL (80.0-100.0); Nucleated Red Blood Cells % 0.0 %
[2025-09-15 06:44] LABS: Alkaline Phosphatase 76 U/L (46-116); Anion Gap 11 (5-15); BUN/Creatinine Ratio 34.6 (10.0-20.0); Calcium 9.3 mg/dL (8.7-10.4); Glucose 87 mg/dL (74-106); Potassium 3.9 mmol/L (3.5-5.1); Sodium 139 mmol/L (136-145); Total Protein 7.3 g/dL (5.7-8.2)
[2025-09-15 06:45] LABS: Bilirubin, Total 0.4 mg/dL (0.2-1.0)
[2025-09-15 06:47] LABS: Blood Urea Nitrogen 73 mg/dL (9-23); Carbon Dioxide 19 mmol/L (20-31); Chloride 109 mmol/L (98-107)
[2025-09-15 06:48] LABS: Alanine Aminotransferase < 9 U/L (7-40); Albumin 2.8 g/dL (3.2-4.8)
--- NOTE | 2025-09-15 11:52 | DVHDS2 ---
Discharge Summary Date of Admission Sep 10, 2025 at 10:23 Date of Discharge: Sep 15, 2025 Labs/Diagnostic Data: Laboratory Results Test 09/15/25 06:01 09/13/25 13:59 09/12/25 23:40 09/12/25 22:48 White Blood Count 4.3 10^3/uL (4.4-10.8) Red Blood Count 3.35 10^6/uL (4.5-5.90) Hemoglobin 9.7 g/dL (13.5-17.5) Hematocrit 28.5 % (41.0-53.0) Mean Corpuscular Volume 85.0 fL (80.0-100.0) Mean Corpuscular Hemoglobin 28.8 pg (28.0-32.0) Mean Corpuscular Hemoglobin Concent 33.9 g/dL (32.0-36.0) Red Cell Distribution Width 19.6 % (11.8-14.3) Platelet Count 96 10^3/uL (140-450) Mean Platelet Volume 7.5 fL (6.9-10.8) Neutrophils (%) (Auto) 63.4 % (37.0-80.0) Lymphocytes (%) (Auto) 31.9 % (10.0-50.0) Monocytes (%) (Auto) 3.6 % (0.0-12.0) Eosinophils (%) (Auto) 0.8 % (0.0-7.0) Basophils (%) (Auto) 0.3 % (0.0-2.0) Neutrophils # (Auto) 2.7 10 ^3/uL (1.6-8.6) Lymphocytes # (Auto) 1.4 10 ^3/uL (0.4-5.4) Monocytes # (Auto) 0.2 10 ^3/uL (0-1.3) Eosinophils # (Auto) 0 10 ^3/uL (0-0.8) Basophils # (Auto) 0 10 ^3/uL (0-0.2) Nucleated Red Blood Cells 0.0 % Sodium Level 139 mmol/L (136-145) Potassium Level 3.9 mmol/L (3.5-5.1) Chloride Level 109 mmol/L (98-107) Carbon Dioxide Level 19 mmol/L (20-31) Anion Gap 11 (5-15) Blood Urea Nitrogen 73 mg/dL (9-23) Creatinine 2.11 mg/dL (0.700-1.30) Glomerular Filtration Rate Calc 33 mL/min (>90) BUN/Creatinine Ratio 34.6 (10.0-20.0) Serum Glucose 87 mg/dL (74-106) Calcium Level 9.3 mg/dL (8.7-10.4) Total Bilirubin 0.4 mg/dL (0.2-1.0) Aspartate Amino Transferase (AST) 48 U/L (13-40) Alanine Aminotransferase (ALT) < 9 U/L (7-40) Alkaline Phosphatase 76 U/L (46-116) Total Protein 7.3 g/dL (5.7-8.2) Albumin 2.8 g/dL (3.2-4.8) Lactate Dehydrogenase 832 U/L (120-246) Carcinoembryonic Antigen 0.98 ng/mL (<=5.0) CA 19-9 Antigen 13 U/mL (0-35) Free Prostate Specific Antigen 0.71 ng/mL (N/A) Percent Free Prostate Specific Ag 44.4 % (.) Prostate Specific Antigen Total 1.6 ng/mL (0.0-4.0) Urine Opiates Screen Neg (NEGATIVE) Urine Fentanyl Screen Neg (NEGATIVE) Urine Barbiturates Screen Neg (NEGATIVE) Urine Phencyclidine Screen Neg (NEGATIVE) Urine Amphetamines Screen Neg (NEGATIVE) Urine Benzodiazepines Screen Neg (NEGATIVE) Urine Cocaine Screen Neg (NEGATIVE) Urine Cannabinoids Screen Neg (NEGATIVE) Vitamin B12 Level 1240 pg/mL (211-911) Folic Acid 2.47 ng/mL (>5.38) Thyroid Stimulating Hormone (TSH) 18.18 uIU/mL (0.55-4.78) Free Thyroxine (T4) Calculated 0.77 ng/dL (0.89-1.76) Test 09/11/25 04:39 09/10/25 13:22 09/10/25 01:26 Creatine Kinase 101 U/L (46-171) Urine Color Light-orange (Yellow) Urine Clarity Ex.turbid (Clear) Urine pH 5.0 (5.0-9.0) Urine Specific [place] 1.018 (1.001-1.035) Urine Protein 1+ (Negative) Urine Ketones Negative (Negative) Urine Blood 2+ /uL (Negative) Urine Nitrite Negative (Negative) Urine Bilirubin Negative (Negative) Urine Urobilinogen Normal mg/dL (Negative) Urine Leukocyte Esterase 3+ /uL (Negative) Urine RBC 70 /hpf (0 - 3) Urine WBC Clumps Present /hpf (None Seen) Urine Microscopic WBC 196 /HPF (0-3) Urine Squamous Epithelial Cells Few /hpf (<5) Urine Calcium Oxalate Crystals Few (None Seen) Urine Bacteria Few /hpf (None Seen) Urine Hyaline Casts Mod /lpf (0 - 2) Urine Mucus Few (None Seen) Urine Glucose Normal mg/dL (Normal) Prothrombin Time 13.0 sec (9.3-11.8) Prothrombin Time INR 1.25 (0.9-1.15) Activated Partial Thromboplast Time 33.6 SEC (24.5-34.5) Other Laboratory Tests 09/15/25 06:01 Brief Hx & Hospital Course: 69-year-old male with past medical history of skin cancer, who was brought to the hospital by EMS after falling at home and being unable to get up. Patient lives in [facility], and was transferred from their hospital to here for further care. Patient is a poor historian. He states he lives alone and that he fell in his bathroom and was unable to get up. He is unsure how long he was on the floor. He states his phone was so he couldn't call for help. He had to wait until one of his neighbors heard him yelling and then came into his house to help him. States he does not have any significant medical history, but that he also does not go to the doctor. Patient had a CT of his head completed at [facility] that had no acute findings. He also had a CT of his abdomen without contrast that showed multiple masses. Recommends follow up imaging with contrast, will wait for kidney function to improve. 09/13: Patient is A&O x2, severely cachectic, bowel sounds normal, delta precaution left flank, S1-S2, adequate air movement in all lung desai. He denies smoking ever. Last seen a doctor was 20+ years ago. Patient endorses that he would like to stay full code. We will start tele. [employer] for IR biopsy of left flank mass tomorrow. Urology following. 09/14: Patient now A&O x4. Tolerating p.o., urinating, passing gas. Severely cachectic. Patient wants to final diagnosis. We will continue to ask Radiology if the sample can be taken, even though it is nonresectable. PT is working with patient, initial recommendations for SNF for rehab. We have discussed hospice with the patient, he wants to continue taking for the idea, not completely onboard at this point. Patient has no social support. Patient wants to continue to be full code 09/15: Patient wants to have some more workup done and is not ready for hospice at this point, he remains A&O x4. Patient does understand that he is too weak to go home and agrees with the sniff for PT rehab. Per IR patient is not a candidate for biopsy as the mass is not resectable and there is no safe treatment plan at this point. Patient's vital signs stable, is stable for discharge to SNF for PT rehab. Diagnosis: Large abdominal mass, renal source likely, no metastatic foci found, nonresectable Shifted abdominal organs due to mass as above Encasing vessels and arteries, Found down, fall and/or syncope, likely due to above Rhabdomyolysis JULIETTE due to VMN Failure to thrive Physical deconditioning Discharge plan: - SNF for PT rehab . Maintain fall risk - Set up PCP, get referral stat/urgent to Oncology. Condition at Discharge: Fair Final Diagnosis/Problems List Large abdominal mass, renal source likely, no metastatic foci found, nonresectable Shifted abdominal organs due to mass as above Encasing vessels and arteries, Found down, fall and/or syncope, likely due to above Rhabdomyolysis JULIETTE due to VMN Failure to thrive Physical deconditioning Discharge Disposition: Care Home Facility Discharge Statement: "Patient was advised to return to the ER or call 911 if any headaches, dizziness, shortness of breath, chest pain, abdominal pain, bleeding, fevers, or worsening of medical condition. Patient was counseled about treatment plan, medications, possible side effects, patientverbalized understanding. All questions were answered to the best of my ability. This discharge took greater then 30 minutes in planning, reviewing documentation, counseling the patient, and discussing with other team members." ASSESSMENT ASSESSMENT Assessment Date of Service: Sep 15, 2025 Billing Provider: BRAD HOYT MD Common Visit Codes: 45780-HPM/OBS DISCH DAY >30min BRAD HOYT MD Sep 15, 2025 11:52
[2025-09-15] MEDS: CEPHALEXIN 250 MG CAP PO ONE (15:35)
--- NOTE | 2025-09-15 15:51 | DVHPN2 ---
Progress Note Date Seen: Sep 15, 2025 Medical Necessity Reason Pt with a Central, PICC or Fol: Yes The following are medically ne: Shafer Catheter Reason for shafer catheter: Bladder Retention/Obstruc Objective vital signs Vital Sign Date Time Temp Pulse Resp B/P (MAP) Pulse Ox O2 Delivery O2 Flow Rate FiO2 09/15/25 13:00 98.4 85 18 136/88 (104) 96 98.4 09/15/25 08:00 Room Air* 0 21 Total Intake and Output 09/14/25 09/14/25 09/15/25 15:00 23:00 07:00 Intake Total 50 ml 325 ml 1600 ml Output Total 550 ml 800 ml Balance 50 ml -225 ml 800 ml medications Current Medications Medications Dose Ordered Sig/Steven Route Start Time Stop Time Status Last Admin Dose Admin Sodium Chloride 1,000 ml @ 75 mls/hr [id number] IV 09/10/25 10:30 09/15/25 04:52 75 MLS/HR Acetaminophen/ Hydrocodone Bitart 1 tab Q4HP PRN PO 09/10/25 10:30 Ondansetron HCl 4 mg Q4HP PRN IV 09/10/25 10:30 Docusate Sodium 100 mg BIDPRN PRN PO 09/10/25 10:30 Enoxaparin Sodium 30 mg DAILY SC 09/11/25 10:00 09/13/25 08:53 30 MG Acetaminophen 650 mg Q6HP PRN PO 09/10/25 10:30 Haloperidol Lactate 5 mg Q8HP PRN IM 09/11/25 07:00 09/11/25 07:19 5 MG Metronidazole 500 mg Q8HR PO 09/12/25 22:00 09/15/25 15:35 500 MG Lorazepam 1 mg ONCE PRN IV 09/12/25 22:00 Cephalexin 500 mg BID PO 09/15/25 22:00 laboratory and microbiology Laboratory Tests 09/15/25 06:01 Test 09/15/25 06:01 Range/Units Serum Glucose 87 74-106 mg/dL Microbiology Date/Time Source Procedure Growth Status 09/12/25 09:45 Stool Clostridium difficile Toxin Assay - Final Complete 09/10/25 20:35 Nose MRSA Screen - Final Complete Problem List/Assessment/Plan Problem List/Assessment/Plan Acute kidney injury likely hemodynamically mediated with possible superimposed obstruction -continue with conservative management IV fluid hydration and p.o. as tolerated - Urology chronic kidney disease unspecified baseline unknown due to poor establishment of nephrology care Large necrotic abdominal mass with left kidney involvement and colonic involvement -patient declines medical therapy for probable cancer -consider obtaining palliative Care and Oncology -Urology From a nephrology standpoint there is no urgent or emergent indication for dialysis at this time we will consider conservative management renal function slowly improving Rest of care as per primary medical team, will sign off MRI imaging results noted below IMPRESSION: 1. Significantly limited evaluation without intravenous contrast. 2. Large centrally necrotic mass presumably arising from the left kidney with significant viable tissue extending into the right brittany hepatis. 3. 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 4. 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 5. Presumed conglomerate lymphadenopathy in the retroperitoneum primarily in the left para-aortic station. Plan discussed with: Patient Dietary Evaluation Review Recommendations by RD: Increase Calorie Intake Comments: 1) Initiate Nepro bid 2) Consider adding renal standard restriction to diet 3) Encourage optimal PO intake 4) Follow-up with oncology and nephrology 5) Continue to monitor I&O, labs, and skin integrity Expected Outcomes/Goals: 1) appetite and labs to improve 2) gradual wt gain 3) f/u in 3-5 days GUILLE MUNOZ MD Sep 15, 2025 15:51
[2025-09-15] MEDS: CEPHALEXIN 250 MG CAP PO SCH (22:27)
--- NOTE | 2025-09-15 23:04 | DVHPN2 ---
Progress Note - Dictate Date Seen: Sep 15, 2025 Medical Necessity Reason Pt with a Central, PICC or Fol: Yes The following are medically ne: Shafer Catheter Reason for shafer catheter: Bladder Retention/Obstruc Subjective Mr. Mahmood is a 69 years old gentleman with a history of cancer, the patient was transferred from the [facility]. I have seen and examined the patient, I have talked to his nurse and sitter, he reports doing fine, awake, oriented to person, place, he knows year and the month He talks with weak voice He moves both arms and legs, [facility] PT/INR/APTT 09/09/2025:12.4/1.17/26.7 BUN/CR, 09/09/2025: 126/3.2 Lactic acid, 09/09/2025: 2.1 CPK, 09/09/25: 258 NH3, 09/09/2025: <9 Vitamin B12, 09/12/25: 1240 Folic acid, 08/2025: 2.47 TSH, 09/12/2025: 18.18 FT4, 08/2020 5:0.77 CT head, 09/09/2025: No acute intracranial abnormality. Large cystic appearance structure within the right posterior scalp, possibly a large sebaceous cyst CT abdomen/pelvis, 09/09/2025: Limited assessment and without contrast. Multiple large masses oriented times in the upper and mid abdomen. Arranging not clear without contrast. Left kidney not visualized, possible intubated by the mass MRI head, 09/13/2025: Unremarkable MRI findings of the brain. MRI abdomen, 09/13/2025: 1. Significantly limited evaluation without intravenous contrast. 2. Large centrally necrotic mass presumably arising from the left kidney with significant viable tissue extending into the right brittany hepatis. 3. 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 4. 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 5. Presumed conglomerate lymphadenopathy in the retroperitoneum primarily in the left para-aortic station Urinalysis, 09/10/2025: WBC: 196, urine leukocyte esterase: 3+ WBC/HB/PLT/MCV, 09/11/2025: 3.7/9.9/110/85 PT/INR/ABG, 09/10/2025: 13/1.25/33.6 BUN/CR, 09/10/2025: 121/2.87, 08/1025: 92/2.74, 09/13/2025: 77/2.43 HCO3 09/11/2025: 19, 09/13/2025: 19 GFR, 09/10/2025: 23, 09/18: 24 TBI/AST/ALT/AP, 09/10/2025: 0.6/52/12/88 CK, 09/10/2025: 244, 09/11/25: 103 Ultrasound, 09/11/2025: Left kidney not visualized, instead replaced by a large mass adjacent to the spleen, possibly invading the kidney. No right-sided hydronephrosis. Chest x-ray, 09/10/2025: No acute disease vital signs Vital Sign Date Time Temp Pulse Resp B/P (MAP) Pulse Ox O2 Delivery O2 Flow Rate FiO2 09/15/25 17:00 97.8 81 18 135/90 (105) 95 97.8 09/15/25 08:00 Room Air* 0 21 Total Intake and Output 09/14/25 09/14/25 09/15/25 15:00 23:00 07:00 Intake Total 50 ml 325 ml 1600 ml Output Total 550 ml 800 ml Balance 50 ml -225 ml 800 ml medications Current Medications Medications Dose Ordered Sig/Steven Route Start Time Stop Time Status Last Admin Dose Admin Acetaminophen/ Hydrocodone Bitart 1 tab Q4HP PRN PO 09/10/25 10:30 Ondansetron HCl 4 mg Q4HP PRN IV 09/10/25 10:30 Docusate Sodium 100 mg BIDPRN PRN PO 09/10/25 10:30 Enoxaparin Sodium 30 mg DAILY SC 09/11/25 10:00 09/13/25 08:53 30 MG Acetaminophen 650 mg Q6HP PRN PO 09/10/25 10:30 Haloperidol Lactate 5 mg Q8HP PRN IM 09/11/25 07:00 09/11/25 07:19 5 MG Metronidazole 500 mg Q8HR PO 09/12/25 22:00 09/15/25 22:27 500 MG Lorazepam 1 mg ONCE PRN IV 09/12/25 22:00 Cephalexin 500 mg BID PO 09/15/25 22:00 09/15/25 22:27 500 MG objective General: the patient is well developed and nourished. No acute distress. He is cachexia MENTAL STATUS: Awake, only oriented to himself SPEECH, LANGUAGE, HIGHER CORTICAL FUNCTION: no aphasia or dysathria. CRANIAL NERVES:Pupils are equal, round and reactive. EOMs full and conjugate. No nystagmus. Facial sensation intact in all three divisions bilaterally. Mandibular strength intact. Facial muscles symmetrical and strength intact. Tongue midline. No fasciculations or atrophy. SENSATION: Sensation to touch and pinprick is normal. MOTOR: Normal tone in the upper and lower extremity. Normal muscle bulk. No fasciculations. No abnormal movements or posturing. Muscle strength of the major groups in the upper extremities is 4/5. He moves the legs REFLEXES: Deep tendon reflexes normal and symmetrical. No pathological reflexes. CEREBELLAR/COORDINATION: Finger to nose is normal bilaterally GAIT/STATION: deferred. laboratory and microbiology Laboratory Tests 09/15/25 06:01 Test 09/15/25 06:01 Range/Units Serum Glucose 87 74-106 mg/dL Problem List Altered mental status Metabolic encephalopathy Big intra-abdominal mass lesion, ? Malignancy Cachexia ? Secondary to abdominal mass Acute kidney failure Left leg weakness Hypothyroidism Scalp soft tissue mass Assessment/Plan Monitoring Supportive treatment Med surge EEG Nephrology consultation Urology consultation Hematology consultation Social service on case More recommendation per clinical course This medical document was created using an electronic medical record system with [employer] dictation system. Although this document has been carefully reviewed, there may still be some phonetic and typographical errors. These areas are purely typographical due to imperfections of the software programs, and do not reflect any compromise in the patient's medical care. Prognosis poor Dietary Evaluation Review Recommendations by RD: Increase Calorie Intake Comments: 1) Initiate Nepro bid 2) Consider adding renal standard restriction to diet 3) Encourage optimal PO intake 4) Follow-up with oncology and nephrology 5) Continue to monitor I&O, labs, and skin integrity Expected Outcomes/Goals: 1) appetite and labs to improve 2) gradual wt gain 3) f/u in 3-5 days Plan discussed with: SHANTAL Talley MD Sep 15, 2025 23:04
[2025-09-16] VITALS (9 sets, daily range): BP systolic 119–138; BP diastolic 77–89; PULSE 82–89; RESP 16–22; TEMP 97.4–98; O2SAT 95–99
--- NOTE | 2025-09-16 00:33 | DVHEEG2 ---
Neurology EEG Procedural Note Procedural Note EXAM DATE: 09/13/25 REFERRING DOCTOR: Dr. Winter TECHNIQUE: Eighteen channels of EEG, 2 channels of EOG, and 1 channel of EKG were recorded using the International 10/20 system. CLINICAL DATA: The patient was referred for an EEG evaluation for the evidence of seizure disorder. MEDICATIONS: See the chart BACKGROUND ACTIVITY: The patient has spent most time sleeping during this recording, during brief arousals, there was no well organized rhythmic alpha waveforms noticed ACTIVATION: Hyperventilation: Not done Photic Stimulation: No photic responsiveness Sleep: Noticed IMPRESSION: This is an essentially normal EEG. No focal, lateralized, or epileptiform features are noted. If clinically indicated to rule out a seizure disorder, recommend repeat EEG with sleep deprivation. The EKG channel showed a regular heart rate of 78 per minute [place] [address] SHANTAL WINTER MD Sep 16, 2025 00:32
--- NOTE | 2025-09-16 10:08 | DVHPN2 ---
Reviewed: H&P Changes from previous H/P or p: No Changes General: Per HPI Eyes: No Pain, No Vision change, No Conjunctivae inflammation, No Eyelid inflammation, No Other, No Redness ENT: No Ear pain, No Ear discharge, No Nose pain, No Nose discharge, No Nose congestion, No Mouth pain, No Mouth swelling, No Throat pain, No Throat swelling, No Other Cardiovascular: No Chest Pain, No Palpitations, No Orthopnea, No Paroxysmal Noc. Dyspnea, No Edema, No Lt Headedness, No Other Respiratory: No Cough, No Dry, No Shortness of breath, No SOB with excertion, No Wheezing, No Hemoptysis, No Pleuritic Pain, No Sputum, No Other Gastrointestinal: No Nausea, No Vomiting, No Abdominal Pain, No Diarrhea, No Constipation, No Melena, No Hematochezia, No Other Genitourinary: No Dysuria, No Frequency, No Incontinence, No Hematuria, No Retention, No Other Musculoskeletal: No other, No neck pain, No shoulder pain, No arm pain, No back pain, No hand pain, No leg pain, No foot pain Skin: No Rash, No Lesions, No Jaundice, No Bruising, No Other Objective Vitals Vital Signs Date Time Temp Pulse Resp B/P (MAP) Pulse Ox O2 Delivery O2 Flow Rate FiO2 09/16/25 09:00 97.8 86 17 127/83 (98) 95 97.8 09/15/25 20:00 Room Air* 0 21 Intake/Output Intake and Output 09/16/25 07:00 Intake Total 800 ml Output Total 800 ml Balance 0 ml Intake Oral 450 ml IV Total 350 ml Output Urine Total 800 ml # Bowel Movements 4 General Appearance: Alert, Oriented X3, Cooperative, No acute distress Lungs: Clear to auscultation Cardiovascular: Regular rate, Normal S1, Normal S2 Abdomen: Normal bowel sounds, Soft, Other (hard mass left side of abdomen 10 cm) Musculoskeletal: Normal sensory function, Normal motor function Extremities: No edema Neuro: Normal speech, Strength at 5/5 X4 ext, Normal tone, Sensation intact, C ranial nerves 3-12 NL, Other (not confused now- but per nurse intermittent confusion) Psych/Mental Status: Mental status NL (alert,awake.oriented -2), Mood NL Medications Current Medications Medications Dose Ordered Sig/Steven Route Start Time Stop Time Status Last Admin Dose Admin Acetaminophen/ Hydrocodone Bitart 1 tab Q4HP PRN PO 09/10/25 10:30 Ondansetron HCl 4 mg Q4HP PRN IV 09/10/25 10:30 Docusate Sodium 100 mg BIDPRN PRN PO 09/10/25 10:30 Enoxaparin Sodium 30 mg DAILY SC 09/11/25 10:00 09/13/25 08:53 30 MG Acetaminophen 650 mg Q6HP PRN PO 09/10/25 10:30 Haloperidol Lactate 5 mg Q8HP PRN IM 09/11/25 07:00 09/11/25 07:19 5 MG Metronidazole 500 mg Q8HR PO 09/12/25 22:00 09/16/25 05:46 500 MG Lorazepam 1 mg ONCE PRN IV 09/12/25 22:00 Cephalexin 500 mg BID PO 09/15/25 22:00 09/15/25 22:27 500 MG Laboratory Results Laboratory Tests 09/15/25 06:01 Urinalysis Test 09/10/25 13:22 Urine Color Light-orange (Yellow) Urine Clarity Ex.turbid (Clear) Urine pH 5.0 (5.0-9.0) Urine Specific [employer] 1.018 (1.001-1.035) Urine Protein 1+ (Negative) H Urine Ketones Negative (Negative) Urine Blood 2+ /uL (Negative) H Urine Nitrite Negative (Negative) Urine Bilirubin Negative (Negative) Urine Urobilinogen Normal mg/dL (Negative) Urine Leukocyte Esterase 3+ /uL (Negative) Urine RBC 70 /hpf (0 - 3) Urine WBC Clumps Present /hpf (None Seen) Urine Microscopic WBC 196 /HPF (0-3) H Urine Squamous Epithelial Cells Few /hpf (<5) Urine Calcium Oxalate Crystals Few (None Seen) Urine Bacteria Few /hpf (None Seen) H Urine Hyaline Casts Mod /lpf (0 - 2) Urine Mucus Few (None Seen) Urine Glucose Normal mg/dL (Normal) Microbiology Microbiology Date/Time Source Procedure Growth Status 09/12/25 09:45 Stool Clostridium difficile Toxin Assay - Final Complete 09/10/25 20:35 Nose MRSA Screen - Final Complete Labs and/or images reviewed: Labs reviewed by me, Image(s) reviewed by me Assessment/Plan Assessment/Plan 69-year-old male with past medical history of skin cancer, who was brought to the hospital by EMS after falling at home and being unable to get up. Patient lives in [facility], and was transferred from their hospital to here for further care. Patient is a poor historian. He states he lives alone and that he fell in his bathroom and was unable to get up. He is unsure how long he was on the floor. He states his phone was so he couldn't call for help. He had to wait until one of his neighbors heard him yelling and then came into his house to help him. States he does not have any significant medical history, but that he also does not go to the doctor. Patient had a CT of his head completed at [facility] that had no acute findings. He also had a CT of his abdomen without contrast that showed multiple masses. Recommends follow up imaging with contrast, will wait for kidney function to improve. 09/13: Patient is A&O x2, severely cachectic, bowel sounds normal, delta precaution left flank, S1-S2, adequate air movement in all lung desai. He denies smoking ever. Last seen a doctor was 20+ years ago. Patient endorses that he would like to stay full code. We will start tele. [employer] for IR biopsy of left flank mass tomorrow. Urology following. 09/15: Patient does not want to go hospice, he is too weak and no safe plan to go home. Patient agreeing with SNF. We will do discharge plan is SNF. See DC summary 09/15. 09/16: Continue with discharge plan of SNF. Diagnosis: Large abdominal mass, renal source likely, no metastatic foci found, nonresectable Shifted abdominal organs due to mass as above Encasing vessels and arteries, Found down, fall and/or syncope Rhabdomyolysis JULIETTE due to VMN Failure to thrive Physical deconditioning Plan: IV hydration fluids Consult Nephrology appreciate recommendations Consult Urology appreciate recommendations Consult Radiology, Interventional, appreciate recommendations Fall risk PT - recommending SNF rehab Tele Full code Plan discussed with: Patient My Orders Orders - BRAD HOYT MD Procedure Category Date Status Time Discharge DISCHARGE 09/15/25 Transmitted 11:52 * Spot Billing Clerk CONS 09/15/25 Transmitted Consult Consult Care CONS 09/15/25 Transmitted Coordinator Cephalexin Capsule PHA 09/15/25 In Process (Keflex Capsule) 22:00 Date of Service: Sep 16, 2025 Billing Provider: BRAD HOYT MD Common Visit Codes: [id number] INP/OBS CARE(HIGH) BRAD HOYT MD Sep 16, 2025 10:08
[2025-09-17] VITALS (8 sets, daily range): BP systolic 114–144; BP diastolic 74–92; PULSE 75–96; RESP 16–19; TEMP 97–98.6; O2SAT 95–99
--- NOTE | 2025-09-17 10:10 | DVHPN2 ---
Reviewed: H&P Changes from previous H/P or p: No Changes General: Per HPI Eyes: No Pain, No Vision change, No Conjunctivae inflammation, No Eyelid inflammation, No Other, No Redness ENT: No Ear pain, No Ear discharge, No Nose pain, No Nose discharge, No Nose congestion, No Mouth pain, No Mouth swelling, No Throat pain, No Throat swelling, No Other Cardiovascular: No Chest Pain, No Palpitations, No Orthopnea, No Paroxysmal Noc. Dyspnea, No Edema, No Lt Headedness, No Other Respiratory: No Cough, No Dry, No Shortness of breath, No SOB with excertion, No Wheezing, No Hemoptysis, No Pleuritic Pain, No Sputum, No Other Gastrointestinal: No Nausea, No Vomiting, No Abdominal Pain, No Diarrhea, No Constipation, No Melena, No Hematochezia, No Other Genitourinary: No Dysuria, No Frequency, No Incontinence, No Hematuria, No Retention, No Other Musculoskeletal: No other, No neck pain, No shoulder pain, No arm pain, No back pain, No hand pain, No leg pain, No foot pain Skin: No Rash, No Lesions, No Jaundice, No Bruising, No Other Objective Vitals Vital Signs Date Time Temp Pulse Resp B/P (MAP) Pulse Ox O2 Delivery O2 Flow Rate FiO2 09/17/25 09:57 97.5 75 18 144/92 (109) 95 97.5 09/16/25 20:00 Room Air* 0 21 Intake/Output Intake and Output 09/17/25 07:00 Intake Total 50 ml Output Total 820 ml Balance -770 ml Intake Oral 50 ml Output Urine Total 820 ml # Bowel Movements 2 General Appearance: Alert, Oriented X3, Cooperative, No acute distress Lungs: Clear to auscultation Cardiovascular: Regular rate, Normal S1, Normal S2 Abdomen: Normal bowel sounds, Soft, Other (hard mass left side of abdomen 10 cm) Musculoskeletal: Normal sensory function, Normal motor function Extremities: No edema Neuro: Normal speech, Strength at 5/5 X4 ext, Normal tone, Sensation intact, C ranial nerves 3-12 NL, Other (not confused now- but per nurse intermittent confusion) Psych/Mental Status: Mental status NL (alert,awake.oriented -2), Mood NL Medications Current Medications Medications Dose Ordered Sig/Steven Route Start Time Stop Time Status Last Admin Dose Admin Acetaminophen/ Hydrocodone Bitart 1 tab Q4HP PRN PO 09/10/25 10:30 Ondansetron HCl 4 mg Q4HP PRN IV 09/10/25 10:30 Docusate Sodium 100 mg BIDPRN PRN PO 09/10/25 10:30 Enoxaparin Sodium 30 mg DAILY SC 09/11/25 10:00 09/13/25 08:53 30 MG Acetaminophen 650 mg Q6HP PRN PO 09/10/25 10:30 Haloperidol Lactate 5 mg Q8HP PRN IM 09/11/25 07:00 09/11/25 07:19 5 MG Metronidazole 500 mg Q8HR PO 09/12/25 22:00 09/17/25 05:59 500 MG Lorazepam 1 mg ONCE PRN IV 09/12/25 22:00 Cephalexin 500 mg BID PO 09/15/25 22:00 09/16/25 10:18 500 MG Laboratory Results Laboratory Tests 09/15/25 06:01 Urinalysis Test 09/10/25 13:22 Urine Color Light-orange (Yellow) Urine Clarity Ex.turbid (Clear) Urine pH 5.0 (5.0-9.0) Urine Specific [place] 1.018 (1.001-1.035) Urine Protein 1+ (Negative) H Urine Ketones Negative (Negative) Urine Blood 2+ /uL (Negative) H Urine Nitrite Negative (Negative) Urine Bilirubin Negative (Negative) Urine Urobilinogen Normal mg/dL (Negative) Urine Leukocyte Esterase 3+ /uL (Negative) Urine RBC 70 /hpf (0 - 3) Urine WBC Clumps Present /hpf (None Seen) Urine Microscopic WBC 196 /HPF (0-3) H Urine Squamous Epithelial Cells Few /hpf (<5) Urine Calcium Oxalate Crystals Few (None Seen) Urine Bacteria Few /hpf (None Seen) H Urine Hyaline Casts Mod /lpf (0 - 2) Urine Mucus Few (None Seen) Urine Glucose Normal mg/dL (Normal) Microbiology Microbiology Date/Time Source Procedure Growth Status 09/12/25 09:45 Stool Clostridium difficile Toxin Assay - Final Complete 09/10/25 20:35 Nose MRSA Screen - Final Complete Labs and/or images reviewed: Labs reviewed by me, Image(s) reviewed by me Assessment/Plan Assessment/Plan 69-year-old male with past medical history of skin cancer, who was brought to the hospital by EMS after falling at home and being unable to get up. Patient lives in [facility], and was transferred from their hospital to here for further care. Patient is a poor historian. He states he lives alone and that he fell in his bathroom and was unable to get up. He is unsure how long he was on the floor. He states his phone was so he couldn't call for help. He had to wait until one of his neighbors heard him yelling and then came into his house to help him. States he does not have any significant medical history, but that he also does not go to the doctor. Patient had a CT of his head completed at [facility] that had no acute findings. He also had a CT of his abdomen without contrast that showed multiple masses. Recommends follow up imaging with contrast, will wait for kidney function to improve. 09/13: Patient is A&O x2, severely cachectic, bowel sounds normal, delta precaution left flank, S1-S2, adequate air movement in all lung desai. He denies smoking ever. Last seen a doctor was 20+ years ago. Patient endorses that he would like to stay full code. We will start tele. [email or web address] for IR biopsy of left flank mass tomorrow. Urology following. 09/15: Patient does not want to go hospice, he is too weak and no safe plan to go home. Patient agreeing with SNF. We will do discharge plan is SNF. See DC summary 09/15. 09/16: Continue with discharge plan of SNF. 09/17: Continue placement to SNF, discharge when bed placement done available and ready. Continue discharge plan Diagnosis: Large abdominal mass, renal source likely, no metastatic foci found, nonresectable Shifted abdominal organs due to mass as above Encasing vessels and arteries, Found down, fall and/or syncope Rhabdomyolysis JULIETTE due to VMN Failure to thrive Physical deconditioning Plan: IV hydration fluids Consult Nephrology appreciate recommendations Consult Urology appreciate recommendations Consult Radiology, Interventional, appreciate recommendations Fall risk PT - recommending SNF rehab Tele Full code Plan discussed with: Patient My Orders Orders - BRAD HOYT MD Procedure Category Date Status Time Regular Diet DIET 09/16/25 Transmitted Lunch Date of Service: Sep 17, 2025 Billing Provider: BRAD HOYT MD Common Visit Codes: [id number] INP/OBS CARE(HIGH) BRAD HOYT MD Sep 17, 2025 10:10
--- NOTE | 2025-09-17 19:08 | DVHPN2 ---
Progress Note - Dictate Date Seen: Sep 17, 2025 Medical Necessity Reason Pt with a Central, PICC or Fol: Yes The following are medically ne: Shafer Catheter Reason for shafer catheter: Bladder Retention/Obstruc Subjective Mr. Mahmood is a 69 years old gentleman with a history of cancer, the patient was transferred from the [facility]. I have seen and examined the patient, I have talked to his nurse, he reports doing fine, awake, oriented to person, place, he knows year and the month, he looks tired He moves both arms and legs, The left pupil is slightly bigger than the right, with no associated vascular dilatation, abnormal skin secretion [facility] PT/INR/APTT 09/09/2025:12.4/1.17/26.7 BUN/CR, 09/09/2025: 126/3.2 Lactic acid, 09/09/2025: 2.1 CPK, 09/09/25: 258 NH3, 09/09/2025: <9 Vitamin B12, 09/12/25: 1240 Folic acid, 08/2025: 2.47 TSH, 09/12/2025: 18.18 FT4, 08/2020 5:0.77 EEG 09/13/2025: Essentially normal EEG CT head, 09/09/2025: No acute intracranial abnormality. Large cystic appearance structure within the right posterior scalp, possibly a large sebaceous cyst CT abdomen/pelvis, 09/09/2025: Limited assessment and without contrast. Multiple large masses oriented times in the upper and mid abdomen. Arranging not clear without contrast. Left kidney not visualized, possible intubated by the mass MRI head, 09/13/2025: Unremarkable MRI findings of the brain. MRI abdomen, 09/13/2025: 1. Significantly limited evaluation without intravenous contrast. 2. Large centrally necrotic mass presumably arising from the left kidney with significant viable tissue extending into the right brittany hepatis. 3. 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 4. 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 5. Presumed conglomerate lymphadenopathy in the retroperitoneum primarily in the left para-aortic station Urinalysis, 09/10/2025: WBC: 196, urine leukocyte esterase: 3+ WBC/HB/PLT/MCV, 09/11/2025: 3.7/9.9/110/85 PT/INR/ABG, 09/10/2025: 13/1.25/33.6 BUN/CR, 09/10/2025: 121/2.87, 08/1025: 92/2.74, 09/13/2025: 77/2.43 HCO3 09/11/2025: 19, 09/13/2025: 19 GFR, 09/10/2025: 23, 09/18: 24 TBI/AST/ALT/AP, 09/10/2025: 0.6/52/12/88 CK, 09/10/2025: 244, 09/11/25: 103 Ultrasound, 09/11/2025: Left kidney not visualized, instead replaced by a large mass adjacent to the spleen, possibly invading the kidney. No right-sided hydronephrosis. Chest x-ray, 09/10/2025: No acute disease vital signs Vital Sign Date Time Temp Pulse Resp B/P (MAP) Pulse Ox O2 Delivery O2 Flow Rate FiO2 09/17/25 18:12 97.1 86 18 114/76 (89) 96 97.1 09/17/25 08:00 Room Air* 0 21 Total Intake and Output 09/16/25 09/16/25 09/17/25 15:00 23:00 07:00 Intake Total 0 ml 50 ml Output Total 420 ml 400 ml Balance -420 ml -350 ml medications Current Medications Medications Dose Ordered Sig/Steven Route Start Time Stop Time Status Last Admin Dose Admin Acetaminophen/ Hydrocodone Bitart 1 tab Q4HP PRN PO 09/10/25 10:30 Ondansetron HCl 4 mg Q4HP PRN IV 09/10/25 10:30 Docusate Sodium 100 mg BIDPRN PRN PO 09/10/25 10:30 Enoxaparin Sodium 30 mg DAILY SC 09/11/25 10:00 09/13/25 08:53 30 MG Acetaminophen 650 mg Q6HP PRN PO 09/10/25 10:30 Haloperidol Lactate 5 mg Q8HP PRN IM 09/11/25 07:00 09/11/25 07:19 5 MG Metronidazole 500 mg Q8HR PO 09/12/25 22:00 09/17/25 05:59 500 MG Lorazepam 1 mg ONCE PRN IV 09/12/25 22:00 Cephalexin 500 mg BID PO 09/15/25 22:00 09/17/25 10:13 500 MG objective General: the patient is well developed and nourished. No acute distress. He is cachexia MENTAL STATUS: Awake, only oriented to himself SPEECH, LANGUAGE, HIGHER CORTICAL FUNCTION: no aphasia or dysathria. CRANIAL NERVES:Pupils are round and reactive, Rt: 3mm, Lt: 3-4mm. EOMs full and conjugate. No nystagmus. Facial sensation intact in all three divisions bilaterally. Mandibular strength intact. Blinking is weaker and palpebral fissure is bigger on the right side, otherwise no sign of facial weakness. Tongue midline. No fasciculations or atrophy. SENSATION: Sensation to touch and pinprick is normal. MOTOR: Normal tone in the upper and lower extremity. Normal muscle bulk. No fasciculations. No abnormal movements or posturing. Muscle strength of the major groups in the upper extremities is 4/5. He moves the legs REFLEXES: Deep tendon reflexes normal and symmetrical. No pathological reflexes. CEREBELLAR/COORDINATION: Finger to nose is normal bilaterally GAIT/STATION: deferred. laboratory and microbiology Laboratory Tests 09/15/25 06:01 Test 09/15/25 06:01 Range/Units Serum Glucose 87 74-106 mg/dL Problem List Altered mental status Metabolic encephalopathy Big intra-abdominal mass lesion, ? Malignancy Cachexia ? Secondary to abdominal mass Acute kidney failure Left leg weakness Hypothyroidism Anisocoria with the left-sided bigger Weak right blinking Scalp soft tissue mass Assessment/Plan Monitoring Supportive treatment Med surge Nephrology consultation Urology consultation Hematology consultation Social service on case More recommendation per clinical course This medical document was created using an electronic medical record system with [employer] dictation system. Although this document has been carefully reviewed, there may still be some phonetic and typographical errors. These areas are purely typographical due to imperfections of the software programs, and do not reflect any compromise in the patient's medical care. Prognosis poor Dietary Evaluation Review Recommendations by RD: Increase Calorie Intake Comments: 1) Initiate Nepro bid 2) Consider adding renal standard restriction to diet 3) Encourage optimal PO intake 4) Follow-up with oncology and nephrology 5) Continue to monitor I&O, labs, and skin integrity Expected Outcomes/Goals: 1) appetite and labs to improve 2) gradual wt gain 3) f/u in 3-5 days Plan discussed with: Other SHANTAL WINTER MD Sep 17, 2025 19:08
[2025-09-18] VITALS (8 sets, daily range): BP systolic 103–129; BP diastolic 64–87; PULSE 82–95; RESP 17–20; TEMP 96.7–98; O2SAT 96–98
[2025-09-18 14:47] LABS: Hematocrit 32.5 % (41.0-53.0); Hemoglobin 10.8 g/dL (13.5-17.5); Mean Corpuscular Hemoglobin 28.3 pg (28.0-32.0); Mean Corpuscular Volume 85.2 fL (80.0-100.0); Nucleated Red Blood Cells % 0.0 %
[2025-09-18 15:13] LABS: Alanine Aminotransferase 13 U/L (7-40); Alkaline Phosphatase 76 U/L (46-116); Anion Gap 12 (5-15); BUN/Creatinine Ratio 31.9 (10.0-20.0); Bilirubin, Total 0.4 mg/dL (0.2-1.0); Calcium 9.1 mg/dL (8.7-10.4); Glucose 87 mg/dL (74-106); Potassium 4.0 mmol/L (3.5-5.1); Sodium 139 mmol/L (136-145); Total Protein 7.4 g/dL (5.7-8.2)
[2025-09-18 15:15] LABS: Albumin 2.8 g/dL (3.2-4.8); Blood Urea Nitrogen 68 mg/dL (9-23); Carbon Dioxide 18 mmol/L (20-31); Chloride 109 mmol/L (98-107)
[2025-09-18] MEDS: SODIUM CHLORIDE 0.9% 1,000 ML IV SCH (15:48)
--- NOTE | 2025-09-18 18:04 | DVHPN2 ---
Subjective I am assuming the care of the patient from today onwards. Patient he is initially transferred from another hospital as he was found to have acute rhabdomyolysis with incidental finding of abdominal mass. Currently waiting for placement/long term care Reviewed: H&P Changes from previous H/P or p: No Changes General: Per HPI Eyes: No Pain, No Vision change, No Conjunctivae inflammation, No Eyelid inflammation, No Other, No Redness ENT: No Ear pain, No Ear discharge, No Nose pain, No Nose discharge, No Nose congestion, No Mouth pain, No Mouth swelling, No Throat pain, No Throat swelling, No Other Cardiovascular: No Chest Pain, No Palpitations, No Orthopnea, No Paroxysmal Noc. Dyspnea, No Edema, No Lt Headedness, No Other Respiratory: No Cough, No Dry, No Shortness of breath, No SOB with excertion, No Wheezing, No Hemoptysis, No Pleuritic Pain, No Sputum, No Other Gastrointestinal: No Nausea, No Vomiting, No Abdominal Pain, No Diarrhea, No Constipation, No Melena, No Hematochezia, No Other Genitourinary: No Dysuria, No Frequency, No Incontinence, No Hematuria, No Retention, No Other Musculoskeletal: No other, No neck pain, No shoulder pain, No arm pain, No back pain, No hand pain, No leg pain, No foot pain Skin: No Rash, No Lesions, No Jaundice, No Bruising, No Other Objective Vitals Vital Signs Date Time Temp Pulse Resp B/P (MAP) Pulse Ox O2 Delivery O2 Flow Rate FiO2 09/18/25 17:30 98.0 89 20 103/64 (77) 97 98.0 09/18/25 08:00 Room Air* 0 21 Intake/Output Intake and Output 09/18/25 07:00 Intake Total 600 ml Output Total 800 ml Balance -200 ml Intake Oral 600 ml Output Urine Total 800 ml # Bowel Movements 13 Exam HEENT pupils are reactive Neck is supple CV is S1-S2 regular rate and rhythm Respiratory bilaterally GI positive bowel sounds Extremity no edema [employer], no motor deficit General Appearance: Alert, Oriented X3, Cooperative, No acute distress Lungs: Clear to auscultation Cardiovascular: Regular rate, Normal S1, Normal S2 Abdomen: Normal bowel sounds, Soft, Other (hard mass left side of abdomen 10 cm) Musculoskeletal: Normal sensory function, Normal motor function Extremities: No edema Neuro: Normal speech, Strength at 5/5 X4 ext, Normal tone, Sensation intact, C ranial nerves 3-12 NL, Other (not confused now- but per nurse intermittent confusion) Psych/Mental Status: Mental status NL (alert,awake.oriented -2), Mood NL Medications Current Medications Medications Dose Ordered Sig/Steven Route Start Time Stop Time Status Last Admin Dose Admin Acetaminophen/ Hydrocodone Bitart 1 tab Q4HP PRN PO 09/10/25 10:30 Ondansetron HCl 4 mg Q4HP PRN IV 09/10/25 10:30 Docusate Sodium 100 mg BIDPRN PRN PO 09/10/25 10:30 Enoxaparin Sodium 30 mg DAILY SC 09/11/25 10:00 09/18/25 15:37 30 MG Acetaminophen 650 mg Q6HP PRN PO 09/10/25 10:30 Haloperidol Lactate 5 mg Q8HP PRN IM 09/11/25 07:00 09/11/25 07:19 5 MG Metronidazole 500 mg Q8HR PO 09/12/25 22:00 09/18/25 14:59 500 MG Lorazepam 1 mg ONCE PRN IV 09/12/25 22:00 Cephalexin 500 mg BID PO 09/15/25 22:00 09/18/25 10:11 500 MG Sodium Chloride 1,000 ml @ 125 mls/hr Q8H IV 09/18/25 15:30 09/18/25 15:48 125 MLS/HR Laboratory Results Laboratory Tests 09/18/25 13:20 Chemistry Test 09/18/25 13:20 Albumin 2.8 g/dL (3.2-4.8) L Calcium Level 9.1 mg/dL (8.7-10.4) Total Protein 7.4 g/dL (5.7-8.2) LFT Test 09/18/25 13:20 Alanine Aminotransferase (ALT) 13 U/L (7-40) Alkaline Phosphatase 76 U/L (46-116) Aspartate Amino Transferase (AST) 57 U/L (13-40) H Total Bilirubin 0.4 mg/dL (0.2-1.0) Urinalysis Test 09/10/25 13:22 Urine Color Light-orange (Yellow) Urine Clarity Ex.turbid (Clear) Urine pH 5.0 (5.0-9.0) Urine Specific [place] 1.018 (1.001-1.035) Urine Protein 1+ (Negative) H Urine Ketones Negative (Negative) Urine Blood 2+ /uL (Negative) H Urine Nitrite Negative (Negative) Urine Bilirubin Negative (Negative) Urine Urobilinogen Normal mg/dL (Negative) Urine Leukocyte Esterase 3+ /uL (Negative) Urine RBC 70 /hpf (0 - 3) Urine WBC Clumps Present /hpf (None Seen) Urine Microscopic WBC 196 /HPF (0-3) H Urine Squamous Epithelial Cells Few /hpf (<5) Urine Calcium Oxalate Crystals Few (None Seen) Urine Bacteria Few /hpf (None Seen) H Urine Hyaline Casts Mod /lpf (0 - 2) Urine Mucus Few (None Seen) Urine Glucose Normal mg/dL (Normal) Microbiology Microbiology Date/Time Source Procedure Growth Status 09/12/25 09:45 Stool Clostridium difficile Toxin Assay - Final Complete 09/10/25 20:35 Nose MRSA Screen - Final Complete Assessment/Plan Assessment/Plan 69-year-old male who lives alone initially presented to hospital with fall in the bathroom for unknown period of time found to have 1. Acute rhabdomyolysis 2. Status post mechanical fall 3. UTI 4. Failure to thrive 5. Abdominal masses likely necrotic left renal mass highly suspicious for malignancy with shifting of abdominal organs 6. 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 Retroperitoneal lymphadenopathy -PD cath type evaluation and treatment, patient may need SNF/long term care, we will follow up Urology regarding left renal mass Plan discussed with: Patient My Orders Orders - PAT GREEN MD Procedure Category Date Status Time * Dietary Consult CONS 09/18/25 Transmitted 11:18 * Nut Grinder CONS 09/18/25 Transmitted Consult Mechanical Soft Diet DIET 09/18/25 Transmitted Lunch Sodium Chloride 0.9% PHA 09/18/25 In Process 15:30 Communication Order ORDERS 09/18/25 Transmitted 15:33 Date of Service: Sep 18, 2025 Billing Provider: PAT GREEN MD Common Visit Codes: [id number] INP/OBS CARE(HIGH) PAT GREEN MD Sep 18, 2025 18:04
[2025-09-19] VITALS (8 sets, daily range): BP systolic 112–136; BP diastolic 71–94; PULSE 84–95; RESP 16–20; TEMP 97.5–98.8; O2SAT 96–100
--- NOTE | 2025-09-19 11:00 | MEDREC ---
[facility] Intervention Section I [facility] Intervention: Review courses of therapy (PLEASE CONSIDER D/C METRONIDAZOLE IN ABSENCE OF INTRA-ABDOMINAL INFECTION ) MYAH SHAH PHARMACIST Sep 19, 2025 11:00
--- NOTE | 2025-09-19 15:29 | DVH ---
EXAM DESCRIPTION: TESTICULAR ULTRASOUND WITH DOPPLER CLINICAL HISTORY: testicular and scrotal edema COMPARISON: None FINDINGS: The right testis measures 2.6 X 1.7 X 1.9 cm and demonstrates normal echotexture And normal Doppler f low. The left testis measures 2.5 X 1.4 X 2.1 cm and demonstrates normal echotexture And normal Doppler fl ow. The right epididymis demonstrates normal echogenicity and Doppler flow. The left epididymis demonstrates normal echogenicity and Doppler flow. Hydrocele: No significant hydrocele. Varicocele: Left varicocele. Hernia: Large anechoic fluid collection in the right scrotal SAC measuring approximately 8.1 x 5.0 x 4.6 cm, possibly representing fluid within an inguinal hernia. IMPRESSION: Large fluid collection in the right scrotal SAC measuring approximately 8.1 x 5.0 x 4.6 cm, possibly representing fluid within an inguinal hernia. Left varicocele.
--- NOTE | 2025-09-19 16:52 | DVHPN2 ---
Subjective Patient currently weaning source SNF placement/fci care. Ultrasound testicle shows large fluid collection in the right scrotal sac. Reviewed: H&P Changes from previous H/P or p: No Changes General: Per HPI Eyes: No Pain, No Vision change, No Conjunctivae inflammation, No Eyelid inflammation, No Other, No Redness ENT: No Ear pain, No Ear discharge, No Nose pain, No Nose discharge, No Nose congestion, No Mouth pain, No Mouth swelling, No Throat pain, No Throat swelling, No Other Cardiovascular: No Chest Pain, No Palpitations, No Orthopnea, No Paroxysmal Noc. Dyspnea, No Edema, No Lt Headedness, No Other Respiratory: No Cough, No Dry, No Shortness of breath, No SOB with excertion, No Wheezing, No Hemoptysis, No Pleuritic Pain, No Sputum, No Other Gastrointestinal: No Nausea, No Vomiting, No Abdominal Pain, No Diarrhea, No Constipation, No Melena, No Hematochezia, No Other Genitourinary: No Dysuria, No Frequency, No Incontinence, No Hematuria, No Retention, No Other Musculoskeletal: No other, No neck pain, No shoulder pain, No arm pain, No back pain, No hand pain, No leg pain, No foot pain Skin: No Rash, No Lesions, No Jaundice, No Bruising, No Other Objective Vitals Vital Signs Date Time Temp Pulse Resp B/P (MAP) Pulse Ox O2 Delivery O2 Flow Rate FiO2 09/19/25 12:41 97.8 89 20 112/71 (85) 96 97.8 09/19/25 08:00 Room Air* 0 21 Intake/Output Intake and Output 09/19/25 07:00 Intake Total 2256 ml Output Total 900 ml Balance 1356 ml Intake Oral 1050 ml IV Total 1206 ml Output Urine Total 900 ml # Voids 2 # Bowel Movements 8 Exam HEENT pupils are reactive Neck is supple CV is S1-S2 regular rate and rhythm Respiratory bilaterally GI positive bowel sounds Extremity no edema [employer], no motor deficit General Appearance: Alert, Oriented X3, Cooperative, No acute distress Lungs: Clear to auscultation Cardiovascular: Regular rate, Normal S1, Normal S2 Abdomen: Normal bowel sounds, Soft, Other (hard mass left side of abdomen 10 cm) Musculoskeletal: Normal sensory function, Normal motor function Extremities: No edema Neuro: Normal speech, Strength at 5/5 X4 ext, Normal tone, Sensation intact, C ranial nerves 3-12 NL, Other (not confused now- but per nurse intermittent confusion) Psych/Mental Status: Mental status NL (alert,awake.oriented -2), Mood NL Medications Current Medications Medications Dose Ordered Sig/Steven Route Start Time Stop Time Status Last Admin Dose Admin Ondansetron HCl 4 mg Q4HP PRN IV 09/10/25 10:30 Docusate Sodium 100 mg BIDPRN PRN PO 09/10/25 10:30 Enoxaparin Sodium 30 mg DAILY SC 09/11/25 10:00 09/19/25 10:23 30 MG Acetaminophen 650 mg Q6HP PRN PO 09/10/25 10:30 Haloperidol Lactate 5 mg Q8HP PRN IM 09/11/25 07:00 09/11/25 07:19 5 MG Metronidazole 500 mg Q8HR PO 09/12/25 22:00 09/19/25 15:03 500 MG Lorazepam 1 mg ONCE PRN IV 09/12/25 22:00 Cephalexin 500 mg BID PO 09/15/25 22:00 09/19/25 10:22 500 MG Sodium Chloride 1,000 ml @ 125 mls/hr Q8H IV 09/18/25 15:30 09/19/25 10:23 125 MLS/HR Laboratory Results Laboratory Tests 09/18/25 13:20 Urinalysis Test 09/10/25 13:22 Urine Color Light-orange (Yellow) Urine Clarity Ex.turbid (Clear) Urine pH 5.0 (5.0-9.0) Urine Specific [place] 1.018 (1.001-1.035) Urine Protein 1+ (Negative) H Urine Ketones Negative (Negative) Urine Blood 2+ /uL (Negative) H Urine Nitrite Negative (Negative) Urine Bilirubin Negative (Negative) Urine Urobilinogen Normal mg/dL (Negative) Urine Leukocyte Esterase 3+ /uL (Negative) Urine RBC 70 /hpf (0 - 3) Urine WBC Clumps Present /hpf (None Seen) Urine Microscopic WBC 196 /HPF (0-3) H Urine Squamous Epithelial Cells Few /hpf (<5) Urine Calcium Oxalate Crystals Few (None Seen) Urine Bacteria Few /hpf (None Seen) H Urine Hyaline Casts Mod /lpf (0 - 2) Urine Mucus Few (None Seen) Urine Glucose Normal mg/dL (Normal) Microbiology Microbiology Date/Time Source Procedure Growth Status 09/12/25 09:45 Stool Clostridium difficile Toxin Assay - Final Complete 09/10/25 20:35 Nose MRSA Screen - Final Complete Assessment/Plan Assessment/Plan 69-year-old male who lives alone initially presented to hospital with fall in the bathroom for unknown period of time found to have 1. Acute rhabdomyolysis 2. Acute kidney injury with underlying CKD currently stable 3. Metabolic acidosis secondary to kidney 4. Normocytic anemia 5. Abdominal masses likely necrotic left renal mass highly suspicious for malignancy with shifting of abdominal organs 6. 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 Retroperitoneal lymphadenopathy 8. Large fluid collection in the right scrotal sac 9. Failure to thrive -urology follow up -physical therapy evaluation and treatment, patient may need SNF/fci care, we will follow up Urology regarding left renal mass which is likely unresectable -oncology consultation Plan discussed with: Patient, Other My Orders Orders - PAT GREEN MD Procedure Category Date Status Time Testicular Ultrasound US 09/19/25 Resulted 14:27 * Urology Consult CONS 09/19/25 Transmitted 16:32 Date of Service: Sep 19, 2025 Billing Provider: PAT GREEN MD Common Visit Codes: [id number] INP/OBS CARE(HIGH) PAT GREEN MD Sep 19, 2025 16:52
--- NOTE | 2025-09-19 21:32 | DVHPN2 ---
Progress Note - Dictate Date Seen: Sep 19, 2025 Medical Necessity Reason Pt with a Central, PICC or Fol: Yes The following are medically ne: Shafer Catheter Reason for shafer catheter: Bladder Retention/Obstruc Subjective Mr. Mahmood is a 69 years old gentleman with a history of cancer, the patient was transferred from the [facility]. I have seen and examined the patient along with his nurse, he is oriented x2-3, good social skills, but looks weak Pupil size on 08/2625, Rt: 2-3mm, Lt: 3mm, left palpebra fissure is smaller [facility] PT/INR/APTT 09/09/2025:12.4/1./26.7 BUN/CR, 09/09/2025: 126/3.2 Lactic acid, 09/09/2025: 2.1 CPK, 09/09/25: 258 NH3, 09/09/2025: <9 Vitamin B12, 09/12/25: 1240 Folic acid, 08/2025: 2.47 TSH, 09/12/2025: 18.18 FT4, 08/2020 5:0.77 EEG 09/13/2025: Essentially normal EEG Testicular ultrasound, 09/19/2025: Large fluid collection in the right scrotal SAC measuring approximately 8.1 x 5.0 x 4.6 cm, possibly representing fluid within an inguinal hernia. Left varicocele. CT head, 09/09/2025: No acute intracranial abnormality. Large cystic appearance structure within the right posterior scalp, possibly a large sebaceous cyst CT abdomen/pelvis, 09/09/2025: Limited assessment and without contrast. Multiple large masses oriented times in the upper and mid abdomen. Arranging not clear without contrast. Left kidney not visualized, possible intubated by the mass MRI head, 09/13/2025: Unremarkable MRI findings of the brain. MRI abdomen, 09/13/2025: 1. Significantly limited evaluation without intravenous contrast. 2. Large centrally necrotic mass presumably arising from the left kidney with significant viable tissue extending into the right brittany hepatis. 3. 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 4. 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 5. Presumed conglomerate lymphadenopathy in the retroperitoneum primarily in the left para-aortic station Urinalysis, 09/10/2025: WBC: 196, urine leukocyte esterase: 3+ WBC/HB/PLT/MCV, 09/11/2025: 3.7/9.9/110/85 PT/INR/ABG, 09/10/2025: 13/1.25/33.6 BUN/CR, 09/10/2025: 121/2.87, 08/1025: 92/2.74, 09/13/2025: 77/2.43 HCO3 09/11/2025: 19, 09/13/2025: 19 GFR, 09/10/2025: 23, 09/18: 24 TBI/AST/ALT/AP, 09/10/2025: 0.6/52/12/88 CK, 09/10/2025: 244, 09/11/25: 103 Ultrasound, 09/11/2025: Left kidney not visualized, instead replaced by a large mass adjacent to the spleen, possibly invading the kidney. No right-sided hydronephrosis. Chest x-ray, 09/10/2025: No acute disease vital signs Vital Sign Date Time Temp Pulse Resp B/P (MAP) Pulse Ox O2 Delivery O2 Flow Rate FiO2 09/19/25 17:20 97.5 87 20 131/85 (100) 98 97.5 09/19/25 08:00 Room Air* 0 21 Total Intake and Output 09/18/25 09/18/25 09/19/25 15:00 23:00 07:00 Intake Total 240 ml 1536 ml 480 ml Output Total 400 ml 500 ml Balance 240 ml 1136 ml -20 ml medications Current Medications Medications Dose Ordered Sig/Steven Route Start Time Stop Time Status Last Admin Dose Admin Ondansetron HCl 4 mg Q4HP PRN IV 09/10/25 10:30 Docusate Sodium 100 mg BIDPRN PRN PO 09/10/25 10:30 Enoxaparin Sodium 30 mg DAILY SC 09/11/25 10:00 09/19/25 10:23 30 MG Acetaminophen 650 mg Q6HP PRN PO 09/10/25 10:30 Haloperidol Lactate 5 mg Q8HP PRN IM 09/11/25 07:00 09/11/25 07:19 5 MG Metronidazole 500 mg Q8HR PO 09/12/25 22:00 09/19/25 15:03 500 MG Lorazepam 1 mg ONCE PRN IV 09/12/25 22:00 Cephalexin 500 mg BID PO 09/15/25 22:00 09/19/25 10:22 500 MG Sodium Chloride 1,000 ml @ 125 mls/hr Q8H IV 09/18/25 15:30 09/19/25 17:45 125 MLS/HR objective General: the patient is well developed and nourished. No acute distress. He is cachexia MENTAL STATUS: Awake, only oriented to himself SPEECH, LANGUAGE, HIGHER CORTICAL FUNCTION: no aphasia or dysathria. CRANIAL NERVES:Pupils are round and reactive, Rt: 3mm, Lt: 3-4mm. EOMs full and conjugate. No nystagmus. Facial sensation intact in all three divisions bilaterally. Mandibular strength intact. Blinking is weaker and palpebral fissure is bigger on the right side, otherwise no sign of facial weakness. Tongue midline. No fasciculations or atrophy. SENSATION: Sensation to touch and pinprick is normal. MOTOR: Normal tone in the upper and lower extremity. Normal muscle bulk. No fasciculations. No abnormal movements or posturing. Muscle strength of the major groups in the upper extremities is 4/5. He moves the legs REFLEXES: Deep tendon reflexes normal and symmetrical. No pathological reflexes. CEREBELLAR/COORDINATION: Finger to nose is normal bilaterally GAIT/STATION: deferred. laboratory and microbiology Laboratory Tests 09/18/25 13:20 Test 09/18/25 13:20 Range/Units Serum Glucose 87 74-106 mg/dL Problem List Altered mental status Metabolic encephalopathy Big intra-abdominal mass lesion, ? Malignancy Testicular tumor Cachexia ? Secondary to abdominal mass Acute kidney failure Left leg weakness Hypothyroidism Anisocoria with the left-sided bigger Weak right blinking Scalp soft tissue mass Assessment/Plan Monitoring Supportive treatment Med surge Nephrology consultation Urology consultation Hematology consultation Social service on case More recommendation per clinical course This medical document was created using an electronic medical record system with [employer] system. Although this document has been carefully reviewed, there may still be some phonetic and typographical errors. These areas are purely typographical due to imperfections of the software programs, and do not reflect any compromise in the patient's medical care. Prognosis poor Dietary Evaluation Review Recommendations by RD: Increase Calorie Intake Comments: 1) Initiate Nepro bid 2) Consider adding renal standard restriction to diet 3) Encourage optimal PO intake 4) Follow-up with oncology and nephrology 5) Continue to monitor I&O, labs, and skin integrity Expected Outcomes/Goals: 1) appetite and labs to improve 2) gradual wt gain 3) f/u in 3-5 days Plan discussed with: Other SHANTAL WINTER MD Sep 19, 2025 21:32
[2025-09-20] VITALS (8 sets, daily range): BP systolic 123–142; BP diastolic 84–94; PULSE 81–94; RESP 15–18; TEMP 97.1–98.9; O2SAT 96–99
--- NOTE | 2025-09-20 11:23 | DVHPN2 ---
Reviewed: H&P Changes from previous H/P or p: No Changes General: Per HPI Eyes: No Pain, No Vision change, No Conjunctivae inflammation, No Eyelid inflammation, No Other, No Redness ENT: No Ear pain, No Ear discharge, No Nose pain, No Nose discharge, No Nose congestion, No Mouth pain, No Mouth swelling, No Throat pain, No Throat swelling, No Other Cardiovascular: No Chest Pain, No Palpitations, No Orthopnea, No Paroxysmal Noc. Dyspnea, No Edema, No Lt Headedness, No Other Respiratory: No Cough, No Dry, No Shortness of breath, No SOB with excertion, No Wheezing, No Hemoptysis, No Pleuritic Pain, No Sputum, No Other Gastrointestinal: No Nausea, No Vomiting, No Abdominal Pain, No Diarrhea, No Constipation, No Melena, No Hematochezia, No Other Genitourinary: No Dysuria, No Frequency, No Incontinence, No Hematuria, No Retention, No Other Musculoskeletal: No other, No neck pain, No shoulder pain, No arm pain, No back pain, No hand pain, No leg pain, No foot pain Skin: No Rash, No Lesions, No Jaundice, No Bruising, No Other Objective Vitals Vital Signs Date Time Temp Pulse Resp B/P (MAP) Pulse Ox O2 Delivery O2 Flow Rate FiO2 09/20/25 09:34 97.4 87 18 136/91 (106) 99 97.4 09/19/25 20:05 Room Air* 0 21 Intake/Output Intake and Output 09/20/25 07:00 Intake Total 4020 ml Output Total 760 ml Balance 3260 ml Intake Oral 1570 ml IV Total 2450 ml Output Urine Total 760 ml # Bowel Movements 6 General Appearance: Alert, Oriented X3, Cooperative, No acute distress Lungs: Clear to auscultation Cardiovascular: Regular rate, Normal S1, Normal S2 Abdomen: Normal bowel sounds, Soft, Other (hard mass left side of abdomen 10 cm) Musculoskeletal: Normal sensory function, Normal motor function Extremities: No edema Neuro: Normal speech, Strength at 5/5 X4 ext, Normal tone, Sensation intact, C ranial nerves 3-12 NL, Other (not confused now- but per nurse intermittent confusion) Psych/Mental Status: Mental status NL (alert,awake.oriented -2), Mood NL Medications Current Medications Medications Dose Ordered Sig/Steven Route Start Time Stop Time Status Last Admin Dose Admin Ondansetron HCl 4 mg Q4HP PRN IV 09/10/25 10:30 Docusate Sodium 100 mg BIDPRN PRN PO 09/10/25 10:30 Enoxaparin Sodium 30 mg DAILY SC 09/11/25 10:00 09/20/25 10:00 30 MG Acetaminophen 650 mg Q6HP PRN PO 09/10/25 10:30 Haloperidol Lactate 5 mg Q8HP PRN IM 09/11/25 07:00 09/11/25 07:19 5 MG Lorazepam 1 mg ONCE PRN IV 09/12/25 22:00 Sodium Chloride 1,000 ml @ 125 mls/hr Q8H IV 09/18/25 15:30 09/20/25 02:49 125 MLS/HR Saccharomyces Boulardii 250 mg DAILY PO 09/20/25 11:00 UNV Laboratory Results Laboratory Tests 09/18/25 13:20 Urinalysis Test 09/10/25 13:22 Urine Color Light-orange (Yellow) Urine Clarity Ex.turbid (Clear) Urine pH 5.0 (5.0-9.0) Urine Specific [place] 1.018 (1.001-1.035) Urine Protein 1+ (Negative) H Urine Ketones Negative (Negative) Urine Blood 2+ /uL (Negative) H Urine Nitrite Negative (Negative) Urine Bilirubin Negative (Negative) Urine Urobilinogen Normal mg/dL (Negative) Urine Leukocyte Esterase 3+ /uL (Negative) Urine RBC 70 /hpf (0 - 3) Urine WBC Clumps Present /hpf (None Seen) Urine Microscopic WBC 196 /HPF (0-3) H Urine Squamous Epithelial Cells Few /hpf (<5) Urine Calcium Oxalate Crystals Few (None Seen) Urine Bacteria Few /hpf (None Seen) H Urine Hyaline Casts Mod /lpf (0 - 2) Urine Mucus Few (None Seen) Urine Glucose Normal mg/dL (Normal) Microbiology Microbiology Date/Time Source Procedure Growth Status 09/12/25 09:45 Stool Clostridium difficile Toxin Assay - Final Complete 09/10/25 20:35 Nose MRSA Screen - Final Complete Labs and/or images reviewed: Labs reviewed by me, Image(s) reviewed by me Assessment/Plan Assessment/Plan 69-year-old male with past medical history of skin cancer, who was brought to the hospital by EMS after falling at home and being unable to get up. Patient lives in [facility], and was transferred from their hospital to here for further care. Patient is a poor historian. He states he lives alone and that he fell in his bathroom and was unable to get up. He is unsure how long he was on the floor. He states his phone was so he couldn't call for help. He had to wait until one of his neighbors heard him yelling and then came into his house to help him. States he does not have any significant medical history, but that he also does not go to the doctor. Patient had a CT of his head completed at [facility] that had no acute findings. He also had a CT of his abdomen without contrast that showed multiple masses. Recommends follow up imaging with contrast, will wait for kidney function to improve. 09/13: Patient is A&O x2, severely cachectic, bowel sounds normal, delta precaution left flank, S1-S2, adequate air movement in all lung desai. He denies smoking ever. Last seen a doctor was 20+ years ago. Patient endorses that he would like to stay full code. We will start tele. Lovenox for IR biopsy of left flank mass tomorrow. Urology following. 09/15: Patient does not want to go hospice, he is too weak and no safe plan to go home. Patient agreeing with SNF. We will do discharge plan is SNF. See DC summary 09/15. 09/16: Continue with discharge plan of SNF. 09/17: Continue placement to SNF, discharge when bed placement done available and ready. Continue discharge plan 09/20: No significant events over weekend. Continuing to discharge to SNF. Patient is having diarrhea, we will stop antibiotics and start Florastor with yogurt. Diagnosis: Large abdominal mass, renal source likely, no metastatic foci found, nonresectable Shifted abdominal organs due to mass as above Encasing vessels and arteries, Found down, fall and/or syncope Rhabdomyolysis JULIETTE due to VMN Failure to thrive Physical deconditioning Plan: IV hydration fluids Consult Nephrology appreciate recommendations Consult Urology appreciate recommendations Consult Radiology, Interventional, appreciate recommendations Fall risk PT - recommending SNF rehab Tele Full code Plan discussed with: Patient My Orders Orders - BRAD HOYT MD Procedure Category Date Status Time Florastor (S. PHA 09/20/25 Verified Boulardii) (Florastor) 11:00 Date of Service: Sep 20, 2025 Billing Provider: BRAD HOYT MD Common Visit Codes: [id number] INP/OBS CARE(HIGH) BRAD HOYT MD Sep 20, 2025 11:23
[2025-09-20] MEDS: FLORASTOR (S. BOULARDII) 250 MG CAP PO SCH (11:37)
[2025-09-21 01:00] VITALS: BP 140/90; PULSE 86; RESP 17; TEMP 98.5; O2SAT 96
[2025-09-21 05:00] VITALS: BP 136/90; PULSE 92; RESP 17; TEMP 98.1; O2SAT 96
[2025-09-21 08:00] VITALS: PULSE 81; PULSE 91
[2025-09-21 09:00] VITALS: BP 132/88; PULSE 87; RESP 16; TEMP 97.7; O2SAT 96
--- NOTE | 2025-09-21 09:43 | DVHPN2 ---
Reviewed: H&P Changes from previous H/P or p: No Changes General: Per HPI Eyes: No Pain, No Vision change, No Conjunctivae inflammation, No Eyelid inflammation, No Other, No Redness ENT: No Ear pain, No Ear discharge, No Nose pain, No Nose discharge, No Nose congestion, No Mouth pain, No Mouth swelling, No Throat pain, No Throat swelling, No Other Cardiovascular: No Chest Pain, No Palpitations, No Orthopnea, No Paroxysmal Noc. Dyspnea, No Edema, No Lt Headedness, No Other Respiratory: No Cough, No Dry, No Shortness of breath, No SOB with excertion, No Wheezing, No Hemoptysis, No Pleuritic Pain, No Sputum, No Other Gastrointestinal: No Nausea, No Vomiting, No Abdominal Pain, No Diarrhea, No Constipation, No Melena, No Hematochezia, No Other Genitourinary: No Dysuria, No Frequency, No Incontinence, No Hematuria, No Retention, No Other Musculoskeletal: No other, No neck pain, No shoulder pain, No arm pain, No back pain, No hand pain, No leg pain, No foot pain Skin: No Rash, No Lesions, No Jaundice, No Bruising, No Other Objective Vitals Vital Signs Date Time Temp Pulse Resp B/P (MAP) Pulse Ox O2 Delivery O2 Flow Rate FiO2 09/21/25 05:00 98.1 92 17 136/90 (105) 96 98.1 09/20/25 20:00 Room Air* 0 21 Intake/Output Intake and Output 09/21/25 07:00 Intake Total 600 ml Output Total 950 ml Balance -350 ml Intake Oral 600 ml Output Urine Total 950 ml # Bowel Movements 13 General Appearance: Alert, Oriented X3, Cooperative, No acute distress Lungs: Clear to auscultation Cardiovascular: Regular rate, Normal S1, Normal S2 Abdomen: Normal bowel sounds, Soft, Other (hard mass left side of abdomen 10 cm) Musculoskeletal: Normal sensory function, Normal motor function Extremities: No edema Neuro: Normal speech, Strength at 5/5 X4 ext, Normal tone, Sensation intact, C ranial nerves 3-12 NL, Other (not confused now- but per nurse intermittent confusion) Psych/Mental Status: Mental status NL (alert,awake.oriented -2), Mood NL Medications Current Medications Medications Dose Ordered Sig/Steven Route Start Time Stop Time Status Last Admin Dose Admin Ondansetron HCl 4 mg Q4HP PRN IV 09/10/25 10:30 Docusate Sodium 100 mg BIDPRN PRN PO 09/10/25 10:30 Enoxaparin Sodium 30 mg DAILY SC 09/11/25 10:00 09/20/25 10:00 30 MG Acetaminophen 650 mg Q6HP PRN PO 09/10/25 10:30 Haloperidol Lactate 5 mg Q8HP PRN IM 09/11/25 07:00 09/11/25 07:19 5 MG Lorazepam 1 mg ONCE PRN IV 09/12/25 22:00 Sodium Chloride 1,000 ml @ 125 mls/hr Q8H IV 09/18/25 15:30 09/20/25 23:30 125 MLS/HR Saccharomyces Boulardii 250 mg DAILY PO 09/20/25 11:00 09/21/25 09:19 250 MG Laboratory Results Laboratory Tests 09/18/25 13:20 Urinalysis Test 09/10/25 13:22 Urine Color Light-orange (Yellow) Urine Clarity Ex.turbid (Clear) Urine pH 5.0 (5.0-9.0) Urine Specific [place] 1.018 (1.001-1.035) Urine Protein 1+ (Negative) H Urine Ketones Negative (Negative) Urine Blood 2+ /uL (Negative) H Urine Nitrite Negative (Negative) Urine Bilirubin Negative (Negative) Urine Urobilinogen Normal mg/dL (Negative) Urine Leukocyte Esterase 3+ /uL (Negative) Urine RBC 70 /hpf (0 - 3) Urine WBC Clumps Present /hpf (None Seen) Urine Microscopic WBC 196 /HPF (0-3) H Urine Squamous Epithelial Cells Few /hpf (<5) Urine Calcium Oxalate Crystals Few (None Seen) Urine Bacteria Few /hpf (None Seen) H Urine Hyaline Casts Mod /lpf (0 - 2) Urine Mucus Few (None Seen) Urine Glucose Normal mg/dL (Normal) Microbiology Microbiology Date/Time Source Procedure Growth Status 09/12/25 09:45 Stool Clostridium difficile Toxin Assay - Final Complete 09/10/25 20:35 Nose MRSA Screen - Final Complete Labs and/or images reviewed: Labs reviewed by me, Image(s) reviewed by me Assessment/Plan Assessment/Plan 69-year-old male with past medical history of skin cancer, who was brought to the hospital by EMS after falling at home and being unable to get up. Patient lives in [facility], and was transferred from their hospital to here for further care. Patient is a poor historian. He states he lives alone and that he fell in his bathroom and was unable to get up. He is unsure how long he was on the floor. He states his phone was so he couldn't call for help. He had to wait until one of his neighbors heard him yelling and then came into his house to help him. States he does not have any significant medical history, but that he also does not go to the doctor. Patient had a CT of his head completed at [facility] that had no acute findings. He also had a CT of his abdomen without contrast that showed multiple masses. Recommends follow up imaging with contrast, will wait for kidney function to improve. 09/13: Patient is A&O x2, severely cachectic, bowel sounds normal, delta precaution left flank, S1-S2, adequate air movement in all lung desai. He denies smoking ever. Last seen a doctor was 20+ years ago. Patient endorses that he would like to stay full code. We will start tele. [employer] for IR biopsy of left flank mass tomorrow. Urology following. 09/15: Patient does not want to go hospice, he is too weak and no safe plan to go home. Patient agreeing with SNF. We will do discharge plan is SNF. See DC summary 09/15. 09/16: Continue with discharge plan of SNF. 09/17: Continue placement to SNF, discharge when bed placement done available and ready. Continue discharge plan 09/20: No significant events over weekend. Continuing to discharge to SNF. Patient is having diarrhea, we will stop antibiotics and start Florastor with yogurt. 09/21: Patient continues to have loose stool, holding off antibiotics, continue Florastor. We will repeat CBC today, we will get stool WBC culture today. 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 PHA 09/20/25 In Process [place]) (Florastor) 11:00 St Eval Swallow Funct ST 09/20/25 Logged 45min 12:24 St Eval Swallow Funct ST 09/20/25 Logged 45min 12:25 Date of Service: Sep 21, 2025 Billing Provider: BRAD HOYT MD Common Visit Codes: 40053-[id number] INP/OBS CARE(HIGH) BRAD HOYT MD Sep 21, 2025 09:43
[2025-09-21 12:12] LABS: Hematocrit 32.2 % (41.0-53.0); Hemoglobin 10.5 g/dL (13.5-17.5); Mean Corpuscular Hemoglobin 28.3 pg (28.0-32.0); Mean Corpuscular Volume 86.5 fL (80.0-100.0); Nucleated Red Blood Cells % 0.1 %
[2025-09-21 13:00] VITALS: BP 127/84; PULSE 85; RESP 16; TEMP 97.7; O2SAT 96
[2025-09-21 16:37] VITALS: BP 131/84; PULSE 89; RESP 17; TEMP 97.4; O2SAT 97
== END 2025-09-21 17:33 | DRG 564 ==
LOC: ER 01:00 → OVERFLOW 10:23 → EAST 18:25 → CENTRAL 09-11 09:00 → TELE-CENTR 09-13 16:38
PROVIDERS: ADMIT Student in an Organized Health Care Education/Training Program; ATTEND Student in an Organized Health Care Education/Training Program
DX: T79.6XXA Traumatic ischemia of muscle, initial encounter (principal); E43 Unspecified severe protein-calorie malnutrition; G93.41 Metabolic encephalopathy; N17.0 Acute kidney failure with tubular necrosis; R65.11 Systemic inflammatory response syndrome (SIRS) of non-infectious origin with acute organ dysfunction; R64 Cachexia; E87.20 Acidosis, unspecified; N39.0 Urinary tract infection, site not specified; N18.9 Chronic kidney disease, unspecified; E03.9 Hypothyroidism, unspecified; D64.9 Anemia, unspecified; J98.11 Atelectasis; Z68.1 Body mass index [BMI] 19.9 or less, adult; E86.0 Dehydration; R62.7 Adult failure to thrive; K80.20 Calculus of gallbladder without cholecystitis without obstruction; R19.00 Intra-abdominal and pelvic swelling, mass and lump, unspecified site; H57.02 Anisocoria; Z60.8 Other problems related to social environment; Z85.828 Personal history of other malignant neoplasm of skin; Z91.81 History of falling
CPT/HCPCS: 36415; 70551; 71045; 74176; 74181; 76775; 76870; 80048; 80053; 80307; 81001; 82378; 82550; 82607; 82746; 83615; 84154; 84439; 84443; 85025; 85610; 85730; 86301; 87081; 87493; 95819; 97110; 97116; 97163; 97530; 99291; G0378